=== PATIENT | male | born 1945 | race Caucasian/White ===

== ENCOUNTER → 2017-08-16 07:27 | Outpatient (CLI) | payer OTHER, SELFPAY ==
[2017-08-16 08:25] LABS: INR 2.1 (0.9-1.3); Prothrombin Time 22.5 SECONDS (10.1-12.7)
== END ==
PROVIDERS: PCP Internal Medicine; Visit Provider Internal Medicine
DX: I48.2 Chronic atrial fibrillation (principal); Z79.01 Long term (current) use of anticoagulants
CPT/HCPCS: 36415; 85610

== ENCOUNTER → 2017-09-13 08:06 | Outpatient (CLI) | payer OTHER, SELFPAY ==
[2017-09-13 08:49] LABS: INR 2.5 (0.9-1.3); Prothrombin Time 26.7 SECONDS (10.1-12.7)
== END ==
PROVIDERS: PCP Internal Medicine; Visit Provider Internal Medicine
DX: Z79.01 Long term (current) use of anticoagulants (principal); I48.2 Chronic atrial fibrillation
CPT/HCPCS: 36415; 85610

== ENCOUNTER → 2017-10-09 11:22 | Outpatient (CLI) | payer OTHER, SELFPAY ==
[2017-10-09 13:12] LABS: INR 2.1 (0.9-1.3); Prothrombin Time 22.9 SECONDS (10.1-12.7)
== END ==
PROVIDERS: PCP Internal Medicine; Visit Provider Internal Medicine
DX: Z79.01 Long term (current) use of anticoagulants (principal); I48.2 Chronic atrial fibrillation
CPT/HCPCS: 36415; 85610

== ENCOUNTER → 2017-11-07 08:31 | Outpatient (CLI) | payer OTHER, SELFPAY ==
[2017-11-07 09:08] LABS: INR 2.3 (0.9-1.3)
== END ==
PROVIDERS: PCP Internal Medicine; Visit Provider Internal Medicine
DX: I48.2 Chronic atrial fibrillation (principal); Z79.01 Long term (current) use of anticoagulants
CPT/HCPCS: 36415; 85610

== ENCOUNTER → 2017-12-07 07:06 | Outpatient (CLI) | payer OTHER, SELFPAY ==
[2017-12-07 07:32] LABS: INR 2.5 (0.9-1.3); Prothrombin Time 27.5 SECONDS (10.1-12.7)
== END ==
PROVIDERS: PCP Internal Medicine; Visit Provider Internal Medicine
DX: I48.2 Chronic atrial fibrillation (principal); Z79.01 Long term (current) use of anticoagulants
CPT/HCPCS: 36415; 85610

== ENCOUNTER → 2018-01-04 09:33 | Outpatient (CLI) | payer OTHER, SELFPAY ==
[2018-01-04 10:05] LABS: INR 2.9 (0.9-1.3); Prothrombin Time 32.1 SECONDS (10.1-12.7)
== END ==
PROVIDERS: PCP Internal Medicine; Visit Provider Internal Medicine
DX: I48.2 Chronic atrial fibrillation (principal); Z79.01 Long term (current) use of anticoagulants
CPT/HCPCS: 36415; 85610

== ENCOUNTER → 2018-02-01 08:51 | Outpatient (CLI) | payer OTHER, SELFPAY ==
[2018-02-01 10:28] LABS: INR 2.7 (0.9-1.3); Prothrombin Time 29.2 SECONDS (10.1-12.7)
== END ==
PROVIDERS: PCP Internal Medicine; Visit Provider Internal Medicine
DX: I48.2 Chronic atrial fibrillation (principal); Z79.01 Long term (current) use of anticoagulants
CPT/HCPCS: 36415; 85610

== ENCOUNTER → 2018-03-01 09:13 | Outpatient (CLI) | payer OTHER, SELFPAY ==
[2018-03-01 10:10] LABS: INR 2.8 (0.9-1.3); Prothrombin Time 32.4 SECONDS (10.1-12.7)
== END ==
PROVIDERS: PCP Internal Medicine; Visit Provider Internal Medicine
DX: I48.2 Chronic atrial fibrillation (principal); Z79.01 Long term (current) use of anticoagulants
CPT/HCPCS: 36415; 85610

== ENCOUNTER → 2018-03-08 11:32 | Outpatient (CLI) | payer OTHER, SELFPAY ==
[2018-03-08 12:30] LABS: Add Manual Diff / Slide Review NO; Basophils Percent Auto 0.8 % (0-2); Eosinophils Percent Auto 3.1 % (2-4); Hematocrit 45.2 % (41-53); Hemoglobin 15.5 g/dL (13.5-17.5); Lymphocytes Percent Auto 34.8 % (25-40); Mean Corpuscular HGB Conc 34.2 % (30-36); Mean Corpuscular Hemoglobin 30.7 PG (26-34); Mean Corpuscular Volume 89.5 fL (80-100); Monocytes Percent Auto 11.8 % (3-14); Neutrophils Absolute Auto 1900 /uL (1500-7000); Neutrophils Percent Auto 49.5 % (50-75); Platelet Count 213 X10^3/uL (150-400); Red Blood Cell Count 5.05 X10^6/uL (4.5-5.9); Red Cell Distribution Width 12.8 % (11.6-14.8); White Blood Cell Count 3.7 X10^3/uL (4.5-11.0)
[2018-03-08 12:51] LABS: INR 2.7 (0.9-1.3); Prothrombin Time 31.5 SECONDS (10.1-12.7)
[2018-03-08 13:12] LABS: Alanine Aminotransferase 49 IU/L (21-72); Albumin 4.8 g/dL (3.5-5.0); Albumin Globulin Ratio 1.4 (1.0-2.8); Alkaline Phosphatase 82 U/L (38-126); Aspartate Aminotransferase 44 IU/L (17-59); BUN Creatinine Ratio 25.7 (6-22); Bilirubin Total 0.6 mg/dL (0.2-1.3); Blood Urea Nitrogen 18 mg/dL (9-20); Carbon Dioxide 31 mmol/L (22-32); Chloride 102 mmol/L (98-107); Estimated Glomerular Filt Rate > 60.0 mL/min (>60); Globulin 3.4 g/dL (1.7-4.1); Glucose 95 mg/dL (80-110); HEMOLYSIS < 15 (0-50); Sodium 145 mmol/L (137-145); Total Protein 8.2 g/dL (6.3-8.2)
== END ==
PROVIDERS: PCP Internal Medicine; Visit Provider Internal Medicine
DX: I48.2 Chronic atrial fibrillation (principal); Z79.01 Long term (current) use of anticoagulants; E78.2 Mixed hyperlipidemia; I10 Essential (primary) hypertension; R97.20 Elevated prostate specific antigen [PSA]
CPT/HCPCS: 36415; 80053; 84153; 85025; 85610

== ENCOUNTER 2018-03-26 07:23 | Day surgery (SDC) | payer OTHER, SELFPAY ==
[2018-03-26 07:51] VITALS: BP 160/93; PULSE 90; RESP 16; TEMP 36.4; O2SAT 98; BMI 31.0
[2018-03-26] MEDS: PROPARACAINE 0.5% OPHTH SOL 2 DROPS EYE-OP (08:00)
[2018-03-26] MEDS: CATARACT EYE COMPOUND (10 DROPS/SYRINGE) 3 DROPS EYE-OP ×3 (08:05→08:15)
--- NOTE | 2018-03-26 09:32 | PM.PREOP ---
Pre-operative Note Interval Note History & Physical reviewed/Exam performed by Physician: No Changes to H&P: No
--- NOTE | 2018-03-26 09:33 | P.OP_ITS ---
Operative Date/Time/Diagnoses Pre-op diagnosis: Nuclear cataract right eye Procedure & Clinicians Procedure: Cataract Surgery Same procedure as scheduled: Yes Surgeon: Lenny Brito Anesthesia Type: MAC +/- and Sedation Operative Notes Procedure in detail: Patient brought to the operating suite. Tetracaine drops placed in the right eye. Patient was prepped and draped in sterile manner. Wire lid speculum was placed in the eye. Betadine drops were placed on the eye. This was irrigated. Lidocaine jelly was placed on the eye. A paracentesis port was created with a side-port blade. 0.1 mL 1% preservative free lidocaine was injected into the anterior chamber. The anterior chamber was deepened with viscoelastic. 2.6 mm keratome was used to create a temporal clear corneal incision. Cystotome and Utrata forceps were used to create continuous tear capsulorrhexis. Balanced salt solution was used to hydro dissect the nucleus. The phacoemulsification handpiece was inserted and the nucleus was removed using the stop and chop technique. The irrigation aspiration handpiece was inserted and the remaining cortex was removed. Anterior chamber was deepened with viscoelastic. An Ron ZCB00 intraocular lens with a power of 19.5 was injected into the capsular bag. Irrigation aspiration handpiece was inserted and the remaining viscoelastic was removed. Incision was hydrated with balanced salt solution and found to be leak free with pressure with Weck- Mckenna sponges. 0.1 mL Vigamox injected anterior chamber. 0.3 mL Kenalog 10 mg was injected subconjunctivally. Lid speculum was removed. The patient left the operating room in excellent condition. Complications: none Condition: stable Disposition: same day surgery
[2018-03-26] MEDS: PHENYLEPHRINE/LIDOCAINE VIAL (OR) 0.2 ML EYE-OP (09:40)
[2018-03-26] MEDS: TRIAMCINOLONE 50 MG/5 ML VIAL INJ (09:41)
[2018-03-26] MEDS: MOXIFLOXACIN OPHTH DROPS 3 ML BOTTLE 2 DROPS INJ (09:41)
[2018-03-26] MEDS: CHONDROIDTIN/SOD HYALURONATE 1.05 ML SYRINGE INTRAOCULA (09:41)
[2018-03-26] MEDS: LIDOCAINE JELLY 2% 5 ML 1 APPLIC TOP (09:41)
[2018-03-26] MEDS: BALANCED SALT IRRIG SOLN NO.2 500 ML, EPINEPHrine 1 MG IRR (09:42)
[2018-03-26] MEDS: TETRACAINE 0.5% OPHTH DROPS 15 ML 2 DROPS EYE-RIGHT (09:42)
[2018-03-26 10:10] VITALS: BP 108/70; PULSE 59; RESP 15; TEMP 36.3; O2SAT 95
== END 2018-03-26 10:15 | disposition admitted as inpatient to this hospital (09) ==
PROVIDERS: PCP Internal Medicine; Visit Provider Ophthalmology
DX: H25.11 Age-related nuclear cataract, right eye (principal); I10 Essential (primary) hypertension; I48.91 Unspecified atrial fibrillation; Z79.01 Long term (current) use of anticoagulants
CPT/HCPCS: J0171; J2250; J3010; J3301

== ENCOUNTER 2018-04-02 06:30 | Day surgery (SDC) | payer OTHER, SELFPAY ==
[2018-04-02] MEDS: PROPARACAINE 0.5% OPHTH SOL 2 DROPS EYE-OP (07:03)
[2018-04-02] MEDS: CATARACT EYE COMPOUND (10 DROPS/SYRINGE) 3 DROPS EYE-OP (07:08)
[2018-04-02 07:09] VITALS: BMI 31.0
[2018-04-02 07:23] VITALS: BP 149/91; PULSE 80; RESP 16; TEMP 36.6; O2SAT 97
--- NOTE | 2018-04-02 07:49 | PM.PREOP ---
Pre-operative Note Interval Note History & Physical reviewed/Exam performed by Physician: No Changes to H&P: No
--- NOTE | 2018-04-02 07:50 | P.OP_ITS ---
Operative Date/Time/Diagnoses Pre-op diagnosis: Nuclear Cataract Left eye Post-op diagnosis: same Procedure & Clinicians Surgeon: Lenny Brito Anesthesia Type: MAC +/- and Sedation Operative Notes Procedure in detail: Patient brought to the operating suite. Tetracaine drops placed in the left eye. Patient was prepped and draped in sterile manner. Wire lid speculum was placed in the eye. Betadine drops were placed on the eye. This was irrigated. Lidocaine jelly was placed on the eye. A paracentesis port was created with a side-port blade. 0.1 mL 1% preservative free lidocaine was injected into the anterior chamber. The anterior chamber was deepened with viscoelastic. 2.6 mm keratome was used to create a temporal clear corneal incision. Cystotome and Utrata forceps were used to create continuous tear capsulorrhexis. Balanced salt solution was used to hydro dissect the nucleus. The phacoemulsification handpiece was inserted and the nucleus was removed using the stop and chop technique. The irrigation aspiration handpiece was inserted and the remaining cortex was removed. Anterior chamber was deepened with viscoelastic. An Ron ZCB00 intraocular lens with a power of 20.0 was injected into the capsular bag. Irrigation aspiration handpiece was inserted and the remaining viscoelastic was removed. Incision was hydrated with balanced salt solution and found to be leak free with pressure with Weck- Mceknna sponges. 0.1 mL Vigamox injected anterior chamber. 0.3 mL Kenalog 10 mg was injected subconjunctivally. Lid speculum was removed. The patient left the operating room in excellent condition. Complications: none Condition: stable Disposition: same day surgery
--- NOTE | 2018-04-02 07:50 | SUR.OPER ---
Supine on eye stretcher, head on extension cradle secured with tape. Arms tucked at sides with blanket. Pillow under knees.
[2018-04-02] MEDS: PHENYLEPHRINE/LIDOCAINE VIAL (OR) 0.2 ML EYE-OP (07:54)
[2018-04-02] MEDS: TRIAMCINOLONE 50 MG/5 ML VIAL INJ (07:55)
[2018-04-02] MEDS: MOXIFLOXACIN OPHTH DROPS 3 ML BOTTLE 2 DROPS INJ (07:55)
[2018-04-02] MEDS: CHONDROIDTIN/SOD HYALURONATE 1.05 ML SYRINGE INTRAOCULA (07:55)
[2018-04-02] MEDS: BALANCED SALT IRRIG SOLN NO.2 500 ML, EPINEPHrine 1 MG IRR (07:56)
[2018-04-02] MEDS: TETRACAINE 0.5% OPHTH DROPS 4 ML 2 DROPS EYE-OP (07:56)
[2018-04-02] MEDS: LIDOCAINE JELLY 2% 5 ML 1 APPLIC TOP (07:56)
[2018-04-02 08:12] VITALS: BP 109/72; PULSE 72; RESP 15; TEMP 36.4; O2SAT 96
== END 2018-04-02 08:30 | disposition home or self-care (01) ==
PROVIDERS: PCP Internal Medicine; Visit Provider Ophthalmology
DX: H25.12 Age-related nuclear cataract, left eye (principal); I10 Essential (primary) hypertension; I48.91 Unspecified atrial fibrillation
CPT/HCPCS: J0171; J2250; J3010; J3301

== ENCOUNTER → 2018-04-04 11:27 | Outpatient (CLI) | payer OTHER, SELFPAY ==
[2018-04-04 12:33] LABS: INR 2.5 (0.9-1.3); Prothrombin Time 29.5 SECONDS (10.1-12.7)
[2018-04-04 12:53] LABS: BUN Creatinine Ratio 22.9 (6-22); Blood Urea Nitrogen 16 mg/dL (9-20); Estimated Glomerular Filt Rate > 60.0 mL/min (>60)
== END ==
PROVIDERS: Family Provider Student in an Organized Health Care Education/Training Program; PCP Internal Medicine; Visit Provider Internal Medicine
DX: R31.0 Gross hematuria (principal); I48.2 Chronic atrial fibrillation; Z79.01 Long term (current) use of anticoagulants
CPT/HCPCS: 36415; 82565; 84520; 85610

== ENCOUNTER → 2018-04-05 11:49 | Outpatient (CLI) | payer OTHER, SELFPAY ==
--- NOTE | 2018-04-05 | DI.CT.S_ITS ---
PROCEDURE: CT ABDOMEN PELVIS WO/W CON INDICATIONS: Gross hematuria TECHNIQUE: Optional 5 mm thick noncontrast images acquired from the diaphragm to the symphysis pubis. After the administration of intravenous contrast, 5 mm thick images acquired from the diaphragm to the symphysis pubis after a 10-minute delay. 2 mm thick coronal and sagittal reformats were then performed of the kidneys and ureters. For radiation dose reduction, the following was used: automated exposure control, adjustment of mA and/or kV according to patient size. COMPARISON: None. FINDINGS: Image quality: Excellent. Lung bases: Lung bases are clear. Heart size is at the upper limits of normal. There is a small hilar hernia. Urinary system: Kidneys demonstrate no renal stones, hydronephrosis, or perinephric stranding. There is symmetric bilateral renal enhancement. There is a left renal cortical cyst as wall as a few small hypodense foci in the right kidney which are too small to characterize but likely represent cysts. The Renal calyces appear normal in morphology when filled with contrast. Opacified portions of both ureters demonstrate normal caliber. No obstructing renal stone identified. Bladder wall thickness is normal. No calcified bladder stones. There is marked enlargement of the prostate which demonstrates scattered small foci of internal calcifications. Other solid organs: There is a small hypodensity in the right hepatic lobe measuring up to 4 mm which is too small to characterize but likely represents a cyst. Gallbladder appears within normal limits without calcified gallstones. Biliary system is non dilated. Pancreas enhances normally. Spleen is normal in size and enhancement. There is thickening of the adrenal glands bilaterally. Peritoneum and bowel: Bowel loops demonstrate normal wall thickness and caliber. There is colonic diverticulosis without acute diverticulitis. No free fluid or air. Nodes and vessels: No retroperitoneal or mesenteric adenopathy by size criteria. Aorta and inferior vena cava are normal in size. Abdominal wall: No ventral hernias. Pelvis: No pathologic free pelvic fluid. There is a small fat-containing left inguinal hernia. No inguinal adenopathy. Bones: No suspicious bony lesions. No vertebral body compression fractures. IMPRESSION: 1. No evidence of nephrolithiasis, hydronephrosis, or suspicious filling defects within the renal cortical systems. 2. Marked enlargement of the prostate is nonspecific and likely represents BPH. Dictated by: Everardo Kidd M.D. on 04/05/2018 at 13:25 Approved by: Everardo Kidd M.D. on 04/05/2018 at 13:36
== END ==
PROVIDERS: Family Provider Student in an Organized Health Care Education/Training Program; PCP Internal Medicine; Visit Provider Student in an Organized Health Care Education/Training Program
DX: R31.0 Gross hematuria (principal); N40.0 Benign prostatic hyperplasia without lower urinary tract symptoms; K40.90 Unilateral inguinal hernia, without obstruction or gangrene, not specified as recurrent
CPT/HCPCS: 74178; Q9967

== ENCOUNTER → 2018-04-25 10:14 | Outpatient (CLI) | payer OTHER, SELFPAY ==
[2018-04-25 10:52] LABS: INR 2.1 (0.9-1.3); Prothrombin Time 24.3 SECONDS (10.1-12.7)
== END ==
PROVIDERS: PCP Internal Medicine; Visit Provider Internal Medicine
DX: I48.2 Chronic atrial fibrillation (principal); Z79.01 Long term (current) use of anticoagulants
CPT/HCPCS: 36415; 85610

== ENCOUNTER → 2018-05-23 09:20 | Outpatient (CLI) | payer OTHER, SELFPAY ==
[2018-05-23 10:17] LABS: INR 2.7 (0.9-1.3); Prothrombin Time 31.3 SECONDS (10.1-12.7)
== END ==
PROVIDERS: PCP Internal Medicine; Visit Provider Internal Medicine
DX: I48.2 Chronic atrial fibrillation (principal); Z79.01 Long term (current) use of anticoagulants
CPT/HCPCS: 36415; 85610

== ENCOUNTER → 2018-06-20 09:02 | Outpatient (CLI) | payer OTHER, SELFPAY ==
[2018-06-20 09:58] LABS: INR 3.2 (0.9-1.3); Prothrombin Time 37.5 SECONDS (10.1-12.7)
== END ==
PROVIDERS: PCP Internal Medicine; Visit Provider Internal Medicine
DX: I48.2 Chronic atrial fibrillation (principal); Z79.01 Long term (current) use of anticoagulants
CPT/HCPCS: 36415; 85610

== ENCOUNTER → 2018-07-17 08:02 | Outpatient (CLI) | payer OTHER, SELFPAY ==
[2018-07-17 09:02] LABS: INR 2.2 (0.9-1.3); Prothrombin Time 25.9 SECONDS (10.1-12.7)
== END ==
PROVIDERS: PCP Internal Medicine; Visit Provider Internal Medicine
DX: I48.2 Chronic atrial fibrillation (principal); Z79.01 Long term (current) use of anticoagulants
CPT/HCPCS: 36415; 85610

== ENCOUNTER → 2018-08-20 09:24 | Outpatient (CLI) | payer OTHER, SELFPAY ==
[2018-08-20 10:26] LABS: Prothrombin Time 35.3 SECONDS (10.1-12.7)
== END ==
PROVIDERS: PCP Internal Medicine; Visit Provider Internal Medicine
DX: I48.2 Chronic atrial fibrillation (principal); Z79.01 Long term (current) use of anticoagulants
CPT/HCPCS: 36415; 85610

== ENCOUNTER → 2018-09-18 09:09 | Outpatient (CLI) | payer OTHER, SELFPAY ==
[2018-09-18 10:55] LABS: Prothrombin Time 36.1 SECONDS (10.1-12.7)
== END ==
PROVIDERS: PCP Internal Medicine; Visit Provider Internal Medicine
DX: I48.2 Chronic atrial fibrillation (principal); Z79.01 Long term (current) use of anticoagulants
CPT/HCPCS: 36415; 85610

== ENCOUNTER → 2018-10-17 08:35 | Outpatient (CLI) | payer OTHER, SELFPAY ==
[2018-10-17 09:23] LABS: INR 3.1 (0.9-1.3); Prothrombin Time 37.1 SECONDS (10.1-12.7)
== END ==
PROVIDERS: PCP Internal Medicine; Visit Provider Internal Medicine
DX: I48.2 Chronic atrial fibrillation (principal); Z79.01 Long term (current) use of anticoagulants
CPT/HCPCS: 36415; 85610

== ENCOUNTER → 2018-11-15 09:21 | Outpatient (CLI) | payer OTHER, SELFPAY ==
[2018-11-15 09:51] LABS: INR 3.4 (0.9-1.3); Prothrombin Time 40.4 SECONDS (10.1-12.7)
== END ==
PROVIDERS: PCP Internal Medicine; Visit Provider Internal Medicine
DX: I48.2 Chronic atrial fibrillation (principal); Z79.01 Long term (current) use of anticoagulants
CPT/HCPCS: 36415; 85610

== ENCOUNTER → 2018-11-29 09:33 | Outpatient (CLI) | payer OTHER, SELFPAY | PROVIDERS: PCP Internal Medicine; Visit Provider Internal Medicine | DX: I48.2 Chronic atrial fibrillation (principal); Z79.01 Long term (current) use of anticoagulants | CPT/HCPCS: 36415; 85610 ==

== ENCOUNTER → 2018-12-27 09:14 | Outpatient (CLI) | payer OTHER, SELFPAY ==
[2018-12-27 10:15] LABS: INR 2.8 (0.9-1.3); Prothrombin Time 33.1 SECONDS (10.1-12.7)
== END ==
PROVIDERS: PCP Internal Medicine; Visit Provider Internal Medicine
DX: Z79.01 Long term (current) use of anticoagulants (principal); I48.20 Chronic atrial fibrillation, unspecified
CPT/HCPCS: 36415; 85610

== ENCOUNTER → 2019-01-20 11:34 | Outpatient (CLI) | payer OTHER, SELFPAY ==
--- NOTE | 2019-01-20 11:37 | DI.RAD.S_ITS ---
PROCEDURE: XR KNEE RT 3V INDICATIONS: knee pain TECHNIQUE: 3 views of the knee were acquired. COMPARISON: None. FINDINGS: Bones: No fractures or dislocations. No suspicious bony lesions. The bone mineralization is within normal limits. There are small developing marginal osteophytes within the patellofemoral compartment. Medial joint space narrowing is present. No osseous erosions are identified. Soft tissues: No joint effusion. No suspicious soft tissue calcifications. IMPRESSION: Mild degenerative changes of the right knee. Dictated by: Pito Saldivar M.D. on 01/20/2019 at 14:22 Approved by: Pito Saldivar M.D. on 01/20/2019 at 14:23
== END ==
PROVIDERS: PCP Internal Medicine; Visit Provider Internal Medicine
DX: M25.561 Pain in right knee (principal); M25.761 Osteophyte, right knee
CPT/HCPCS: 73562

== ENCOUNTER → 2019-01-27 09:23 | Outpatient (CLI) | payer OTHER, SELFPAY ==
[2019-01-27 11:57] LABS: INR 3.2 (0.9-1.3); Prothrombin Time 37.5 SECONDS (10.1-12.7)
== END ==
PROVIDERS: PCP Internal Medicine; Visit Provider Internal Medicine
DX: I48.20 Chronic atrial fibrillation, unspecified (principal); Z79.01 Long term (current) use of anticoagulants
CPT/HCPCS: 36415; 85610

== ENCOUNTER → 2019-02-26 09:10 | Outpatient (CLI) | payer OTHER, SELFPAY ==
[2019-02-26 10:44] LABS: INR 2.8 (0.9-1.3); Prothrombin Time 33.3 SECONDS (10.1-12.7)
== END ==
PROVIDERS: PCP Internal Medicine; Visit Provider Internal Medicine
DX: I48.20 Chronic atrial fibrillation, unspecified (principal); Z79.01 Long term (current) use of anticoagulants
CPT/HCPCS: 36415; 85610

== ENCOUNTER → 2019-04-10 09:22 | Outpatient (CLI) | payer OTHER, SELFPAY ==
[2019-04-10 10:09] LABS: INR 2.7 (0.9-1.3); Prothrombin Time 31.4 SECONDS (10.1-12.7)
== END ==
PROVIDERS: PCP Internal Medicine; Visit Provider Internal Medicine
DX: I48.20 Chronic atrial fibrillation, unspecified (principal); Z79.01 Long term (current) use of anticoagulants
CPT/HCPCS: 36415; 85610

== ENCOUNTER → 2019-05-29 07:10 | Outpatient (CLI) | payer OTHER, SELFPAY ==
[2019-05-29 07:50] LABS: INR 3.2 (0.9-1.3); Prothrombin Time 36.6 SECONDS (10.1-12.7)
== END ==
PROVIDERS: PCP Internal Medicine; Referring Provider Internal Medicine; Visit Provider Internal Medicine
DX: Z79.01 Long term (current) use of anticoagulants (principal); I48.20 Chronic atrial fibrillation, unspecified
CPT/HCPCS: 36415; 85610

== ENCOUNTER → 2020-06-16 07:00 | Outpatient (CLI) | payer OTHER, SELFPAY ==
[2020-06-16 08:08] LABS: INR 2.7 (0.9-1.3); Prothrombin Time 30.4 SECONDS (10.1-12.7)
[2020-06-16 08:17] LABS: Add Manual Diff / Slide Review NO; Basophils Absolute Auto 0 /uL (0-100); Basophils Percent Auto 0.5 % (0-2); Eosinophils Absolute Auto 200 /uL (0-450); Eosinophils Percent Auto 3.4 % (2-4); Hemoglobin 15.2 g/dL (13.5-17.5); Lymphocytes Absolute Auto 1100 /uL (1100-4500); Lymphocytes Percent Auto 20.5 % (25-40); Mean Corpuscular HGB Conc 34.5 % (30-36); Mean Corpuscular Hemoglobin 30.6 PG (26-34); Mean Corpuscular Volume 88.7 fL (80-100); Monocytes Absolute Auto 700 /uL (0-900); Monocytes Percent Auto 12.9 % (3-14); Neutrophils Absolute Auto 3200 /uL (1500-7000); Neutrophils Percent Auto 62.7 % (50-75); Platelet Count 216 X10^3/uL (150-400); Red Blood Cell Count 4.96 X10^6/uL (4.5-5.9); Red Cell Distribution Width 12.6 % (11.6-14.8); White Blood Cell Count 5.2 X10^3/uL (4.5-11.0)
[2020-06-16 08:18] LABS: Alanine Aminotransferase 35 IU/L (<50); Albumin 4.5 g/dL (3.5-5.0); Albumin Globulin Ratio 1.3 (1.0-2.8); Alkaline Phosphatase 91 U/L (38-126); Aspartate Aminotransferase 39 IU/L (17-59); BUN Creatinine Ratio 17.1 (6-22); Bilirubin Total 0.9 mg/dL (0.2-1.3); Blood Urea Nitrogen 14 mg/dL (9-20); Calcium 9.5 mg/dL (8.4-10.2); Carbon Dioxide 32 mmol/L (22-32); Chloride 103 mmol/L (98-107); Cholesterol 192 mg/dL (140-199); Estimated Glomerular Filt Rate > 60.0 mL/min (>60); Globulin 3.4 g/dL (1.7-4.1); Glucose 99 mg/dL (80-110); HDL Cholesterol 36 mg/dL (40-60); HEMOLYSIS < 15 (0-50); LDL Cholesterol Calculated 134 mg/dL (<100); Potassium 3.6 mmol/L (3.4-5.1); Sodium 140 mmol/L (137-145); Total Protein 7.9 g/dL (6.3-8.2); Triglycerides 111 mg/dL (35-150)
== END ==
PROVIDERS: PCP Internal Medicine; Referring Provider Internal Medicine; Visit Provider Internal Medicine
DX: E78.2 Mixed hyperlipidemia (principal); Z79.01 Long term (current) use of anticoagulants; I10 Essential (primary) hypertension; R97.20 Elevated prostate specific antigen [PSA]; I48.20 Chronic atrial fibrillation, unspecified
CPT/HCPCS: 36415; 80053; 80061; 84153; 85025; 85610

== ENCOUNTER → 2020-09-22 07:27 | Outpatient (CLI) | payer OTHER, SELFPAY ==
[2020-09-22 09:23] LABS: Prostate Specific Antigen 8.71 ng/mL (0.10-4.00)
== END ==
PROVIDERS: PCP Internal Medicine; Referring Provider Internal Medicine; Visit Provider Internal Medicine
DX: R97.20 Elevated prostate specific antigen [PSA] (principal)
CPT/HCPCS: 36415; 84153

== ENCOUNTER → 2021-05-02 07:13 | Outpatient (CLI) | payer OTHER, SELFPAY ==
[2021-05-02 09:08] LABS: Prostate Specific Antigen 10.4 ng/mL (0.10-4.00)
== END ==
PROVIDERS: PCP Internal Medicine; Referring Provider Internal Medicine; Visit Provider Internal Medicine
DX: R31.9 Hematuria, unspecified (principal); R97.20 Elevated prostate specific antigen [PSA]
CPT/HCPCS: 36415; 84153

== ENCOUNTER → 2021-06-13 07:18 | Outpatient (CLI) | payer OTHER, SELFPAY ==
--- NOTE | 2021-06-13 07:20 | DI.RAD.S_ITS ---
PROCEDURE: XR CHEST 2V INDICATIONS: cough TECHNIQUE: 2 views of the chest were acquired. COMPARISON: None. FINDINGS: Surgical changes and devices: None. Lungs and pleura: Lungs appear clear. No pleural effusions or pneumothorax. Mediastinum: Mediastinal contours are normal. Heart size is normal. Bones and chest wall: No suspicious bony abnormalities. Soft tissues appear unremarkable. IMPRESSION: No acute cardiopulmonary abnormality. Dictated by: Duglas Draper M.D. on 06/13/2021 at 8:16 Approved by: Duglas Draper M.D. on 06/13/2021 at 8:41
[2021-06-13 08:58] LABS: Add Manual Diff / Slide Review NO; Basophils Absolute Auto 0 /uL (0-100); Basophils Percent Auto 0.8 % (0-2); Eosinophils Absolute Auto 200 /uL (0-450); Eosinophils Percent Auto 4.3 % (2-4); Hematocrit 42.7 % (41-53); Hemoglobin 14.5 g/dL (13.5-17.5); Lymphocytes Absolute Auto 1700 /uL (1100-4500); Lymphocytes Percent Auto 35.9 % (25-40); Mean Corpuscular HGB Conc 33.9 % (30-36); Mean Corpuscular Hemoglobin 29.9 PG (26-34); Monocytes Absolute Auto 600 /uL (0-900); Monocytes Percent Auto 12.1 % (3-14); Neutrophils Absolute Auto 2300 /uL (1500-7000); Neutrophils Percent Auto 46.9 % (50-75); Platelet Count 203 X10^3/uL (150-400); Red Blood Cell Count 4.86 X10^6/uL (4.5-5.9); Red Cell Distribution Width 13.2 % (11.6-14.8); White Blood Cell Count 4.8 X10^3/uL (4.5-11.0)
[2021-06-13 09:46] LABS: Alanine Aminotransferase 30 IU/L (<50); Albumin 4.4 g/dL (3.5-5.0); Albumin Globulin Ratio 1.4 (1.0-2.8); Alkaline Phosphatase 87 U/L (38-126); Aspartate Aminotransferase 36 IU/L (17-59); BUN Creatinine Ratio 13.3 (6-22); Bilirubin Total 0.7 mg/dL (0.2-1.3); Blood Urea Nitrogen 12 mg/dL (9-20); Calcium 9.4 mg/dL (8.4-10.2); Carbon Dioxide 29 mmol/L (22-32); Chloride 105 mmol/L (98-107); Cholesterol 172 mg/dL (140-199); Estimated Glomerular Filt Rate > 60.0 mL/min (>60); Globulin 3.2 g/dL (1.7-4.1); Glucose 90 mg/dL (80-110); HDL Cholesterol 33 mg/dL (40-60); HEMOLYSIS < 15 (0-50); LDL Cholesterol Calculated 116 mg/dL (<100); Potassium 3.8 mmol/L (3.4-5.1); Sodium 141 mmol/L (137-145); Total Protein 7.6 g/dL (6.3-8.2); Triglycerides 113 mg/dL (35-150)
== END ==
PROVIDERS: PCP Internal Medicine; Referring Provider Internal Medicine; Visit Provider Internal Medicine
DX: I48.20 Chronic atrial fibrillation, unspecified (principal); I10 Essential (primary) hypertension; R05.9 Cough, unspecified; E78.2 Mixed hyperlipidemia
CPT/HCPCS: 36415; 71046; 80053; 80061; 85025

== ENCOUNTER → 2021-09-03 17:13 | Outpatient (CLI) | payer OTHER, SELFPAY | PROVIDERS: PCP Internal Medicine; Visit Provider Nurse Practitioner Family | DX: R30.0 Dysuria (principal) | CPT/HCPCS: 87086 ==

== ENCOUNTER 2021-09-03 17:25 | Emergency (ER) | payer OTHER, SELFPAY ==
[2021-09-03 17:59] VITALS: BP 133/83; PULSE 110; RESP 18; TEMP 37.5; O2SAT 97; BMI 28.5
--- NOTE | 2021-09-03 18:09 | ED_ITS ---
HPI - Male Genitourinary General Chief complaint: Urogenital-Male Stated complaint: UTI Temp 102F Time Seen by Provider: 09/03/21 17:51 Source: patient Mode of arrival: Ambulatory History of Present Illness HPI Narrative: Patient is a 76-year-old male history of atrial fibrillation on warfarin presenting today from walk-in clinic with UTI. He says that he has previously had UTIs in the past. He says over the last couple days he has had painful urination. He always has frequent urination due to his BPH. He denies any abdominal pain nausea vomiting. He was noted to have fever 102.4 walk-in clinic. He has not had any confusion. He denies any chest pain or palpitations. No shortness of breath. POC from walk-in clinic does show positive blood, cloudy, positive nitrate leukocytes +500, culture is pending. Related Data Home Medications Medication Instructions Recorded Confirmed ascorbic acid (vitamin C) 500 mg 1,000 mg PO DAILY ##0 10/11/12 09/03/21 tablet multivitamin 1 tab PO DAILY 02/22/18 09/03/21 potassium 99 mg tablet 99 mg PO DAILY 02/22/18 09/03/21 Ocusight 2 ea PO DAILY 06/10/21 09/03/21 Respironics Dreamstation-2 CPAP #1 ea 06/10/21 09/03/21 cholecalciferol (vitamin D3) 50 50 mcg PO DAILY 06/10/21 09/03/21 mcg (2,000 unit) capsule fluticasone propionate 50 1 spray intranasal DAILY 06/10/21 09/03/21 mcg/actuation nasal spray,suspension (Flonase Allergy Relief) magnesium 250 mg tablet 250 mg PO DAILY 06/10/21 09/03/21 Previous Rx's Medication Instructions Recorded diltiazem HCl 120 mg 120 mg PO DAILY #90 caps 01/20/21 capsule,extended release 24 hr (Cardizem CD) tamsulosin 0.4 mg capsule 0.4 mg PO BEDTIME #90 caps 04/26/21 hydrochlorothiazide 25 mg tablet 25 mg PO QDAY #90 tabs 08/30/21 warfarin 5 mg tablet 10 mg PO SEE INSTRUCTIONS #180 tabs 08/30/21 cephalexin 500 mg capsule 500 mg PO BID 7 days #14 caps 09/03/21 Allergies Allergy/AdvReac Type Severity Reaction Status Date / Time tetracycline [TETRACYCLINE] Allergy Mild RASH Verified 09/03/21 17:05 Ahfrpjt-DLU-DjB Reductase AdvReac Intermediate MYALGIAS Verified 09/03/21 17:05 Inhibitor [[id number] REDUCTASE INHIBITOR] Review of Systems Review of Systems Narrative: GENERAL: Denies chills, fatigue, malaise, fever, sweats, travel HEENT: Denies sinus pain, ear pain, sore throat, difficulty swallowing, neck pain RESPIRATORY: Denies dyspnea, cough, wheezing, hemoptysis, sputum. CARDIOVASCULAR: Denies chest pain, palpitations, orthopnea, edema GASTROINTESTINAL: Denies nausea, vomiting, abdominal pain, diarrhea, constipation, melena. : See HPI MUSCULOSKELETAL: Denies weakness, joint pain, or bony pain SKIN: No rash, no erythema, no pruritus NEUROLOGIC: Denies weakness, dizziness, headache, numbness, change in speech, confusion PSYCHIATRIC: No concerning psychosocial issues. 12 point review of systems is negative except for those stated above and HPI Patient History Medical History (Updated 09/03/21 @ 19:38 by Noy Gibbs DO) Anticoagulated on warfarin (08/28/12) Basal cell carcinoma (BCC) of left shoulder (10/12/09) BCC (basal cell carcinoma), scalp/neck (01/01/14) Chronic atrial fibrillation (03/28/13) Elevated prostate specific antigen (PSA) (02/02/15) Essential hypertension Mixed hyperlipidemia Obstructive sleep apnea syndrome Osteoarthritis of right knee Surgical History History of basal cell carcinoma (BCC) excision (10/12/09) History of colonoscopy (05/19/16) History of inguinal hernia repair (1967) S/P UPPP (uvulopalatopharyngoplasty) (1995) Status post appendectomy (1958) Status post Mohs micrographic surgery for basal cell carcinoma (BCC) (01/01/14) Social History household members: spouse Smoking Status: Never smoker Smoking Status: Never smoker alcohol intake frequency: 0-2 drinks per day Substance Use Type: does not use Exam Initial Vital Signs Initial Vital Signs: Vital Signs Temperature 99.5 F 09/03/21 17:59 Pulse Rate 110 H 09/03/21 17:59 Respiratory Rate 18 09/03/21 17:59 Blood Pressure 133/83 09/03/21 17:59 Pulse Oximetry 97 09/03/21 17:59 Oxygen Delivery Method 09/03/21 17:59 GENERAL: Alert awake well-appearing 76-year-old male in no acute distress HEENT: Head atraumatic,EOMI, pupils reactive, face symmetric, moist mucous membranes CARDIOVASCULAR: Irregularly irregular RESPIRATORY: Breath sounds equal bilaterally, no wheezes rales or rhonchi. ABDOMEN: Soft, nontender. Normoactive bowel sounds all 4 quadrants. No guarding or rebound. EXTREMITIES: Normal range of motion, no clubbing or edema. Neurovascularly intact NEUROLOGICAL: Alert and oriented x4.Normal gait and speech. SKIN: Warm, dry, no laceration, no petechiae, no rashes or lesions. Course Orders Ordered: Discontinued Medications Ceftriaxone Sodium 2,000 mg/ (Sodium Chloride) 100 mls @ 200 mls/hr IV NOW ONE Stop: 09/03/21 18:12 Last Infusion: 09/03/21 19:48 Dose: 0 mls/hr Documented By: Admin: 09/03/21 18:42 Dose: 200 mls/hr Documented By: RENÉ Sodium Chloride (Normal Saline 0.9%) 1,000 mls @ 1,000 mls/hr IV BOLUS ONE Stop: 09/03/21 19:10 Last Infusion: 09/03/21 19:48 Dose: 0 mls/hr Documented By: Admin: 09/03/21 18:45 Dose: 1,000 mls/hr Documented By: RENÉ Vital Signs Vital signs: Vital Signs - 8 hr 09/03/21 17:59 Temperature 99.5 F Pulse Rate 110 H Respiratory Rate 18 Blood Pressure 133/83 Pulse Oximetry 97 Oxygen Delivery Method Room Air MDM - Male Genitourinary Lab Data Result diagrams: 09/03/21 17:57 09/03/21 17:57 Labs: Lab Results 09/03/21 09/03/2118 Range/Units 17:57 17:57 17:57 WBC 6.5 (4.5-11.0) X10^3/uL RBC 4.65 (4.5-5.9) X10^6/uL Hgb 14.3 (13.5-17.5) g/dL Hct 41.2 (41-53) % MCV 88.7 (80-100) fL MCH 30.7 (26-34) PG MCHC 34.7 (30-36) % RDW 13.1 (11.6-14.8) % Plt Count 198 (150-400) X10^3/uL Neut % (Auto) 81.1 H (50-75) % Lymph % (Auto) 7.6 L (25-40) % Greenlee % (Auto) 9.8 (3-14) % Eos % (Auto) 0.8 L (2-4) % Baso % (Auto) 0.7 (0-2) % Neut # (Auto) 5300 (4605-3810) /uL Lymph # (Auto) 500 L (2659-1840) /uL Greenlee # (Auto) 600 (0-900) /uL Eos # (Auto) 100 (0-450) /uL Baso # (Auto) 0 (0-100) /uL PT 26.8 H (10.1-12.7) SECONDS INR 2.4 H (0.9-1.3) APTT 42 H (26.4-36.2) SECONDS Sodium 137 (137-145) mmol/L Potassium 3.4 (3.4-5.1) mmol/L Chloride 103 (98-107) mmol/L Carbon Dioxide 25 (22-32) mmol/L BUN 15 (9-20) mg/dL Creatinine 0.67 (0.66-1.25) mg/dL Estimated GFR > 60 (>60) mL/min BUN/Creatinine Ratio 22.4 H (6-22) Glucose 103 (80-110) mg/dL Lactate (0.7-2.1) mmol/L Calcium 9.0 (8.4-10.2) mg/dL Total Bilirubin 0.7 (0.2-1.3) mg/dL AST 47 (17-59) IU/L ALT 33 (<50) IU/L Alkaline Phosphatase 112 (38-126) U/L Total Creatine Kinase 208 H (55-170) U/L CK-MB (CK-2) 2.55 H (<2.37) ng/mL CK-MB (CK-2) Rel Index 1.2 L (1.5-5.0) % Troponin I < 0.012 (0.01-0.034) ng/mL Total Protein 7.9 (6.3-8.2) g/dL Albumin 4.5 (3.5-5.0) g/dL Globulin 3.4 (1.7-4.1) g/dL Albumin/Globulin Ratio 1.3 (1.0-2.8) Procalcitonin 0.12 (<0.5) ng/mL 09/03/21 Range/Units 17:57 WBC (4.5-11.0) X10^3/uL RBC (4.5-5.9) X10^6/uL Hgb (13.5-17.5) g/dL Hct (41-53) % MCV (80-100) fL MCH (26-34) PG MCHC (30-36) % RDW (11.6-14.8) % Plt Count (150-400) X10^3/uL Neut % (Auto) (50-75) % Lymph % (Auto) (25-40) % Greenlee % (Auto) (3-14) % Eos % (Auto) (2-4) % Baso % (Auto) (0-2) % Neut # (Auto) (5927-8980) /uL Lymph # (Auto) (3325-1999) /uL Greenlee # (Auto) (0-900) /uL Eos # (Auto) (0-450) /uL Baso # (Auto) (0-100) /uL PT (10.1-12.7) SECONDS INR (0.9-1.3) APTT (26.4-36.2) SECONDS Sodium (137-145) mmol/L Potassium (3.4-5.1) mmol/L Chloride (98-107) mmol/L Carbon Dioxide (22-32) mmol/L BUN (9-20) mg/dL Creatinine (0.66-1.25) mg/dL Estimated GFR (>60) mL/min BUN/Creatinine Ratio (6-22) Glucose (80-110) mg/dL Lactate 1.0 (0.7-2.1) mmol/L Calcium (8.4-10.2) mg/dL Total Bilirubin (0.2-1.3) mg/dL AST (17-59) IU/L ALT (<50) IU/L Alkaline Phosphatase (38-126) U/L Total Creatine Kinase (55-170) U/L CK-MB (CK-2) (<2.37) ng/mL CK-MB (CK-2) Rel Index (1.5-5.0) % Troponin I (0.01-0.034) ng/mL Total Protein (6.3-8.2) g/dL Albumin (3.5-5.0) g/dL Globulin (1.7-4.1) g/dL Albumin/Globulin Ratio (1.0-2.8) Procalcitonin (<0.5) ng/mL Imaging Data Chest x-ray: Radiologist's Impression: Signed Patient: Jhonatan Pendleton MR#: [id number] : 1945 Acct:[id number] Age/Sex: 76 / M Date of Service: 09/03/21 Loc: ED Accession Number: [id number] ?? Procedure: XR chest 1V Ordering Provider: Noy Gibbs D.O. PROCEDURE:? XR CHEST 1V ? INDICATIONS:? fever ? TECHNIQUE:? One view of the chest was acquired.? ? COMPARISON:? [facility], , XR CHEST 2V, 06/13/2021, 7:19.? [facility], , CHEST 2 VIEW, 07/03/2017, 15:55. ? FINDINGS:? ? Surgical changes and devices:? None.? ? Lungs and pleura:? Lungs are clear.? No pleural effusions or pneumothorax.? ? Mediastinum:? Mediastinal contours appear normal.? Heart size is normal.? ? Bones and chest wall:? No suspicious bony lesions.? Overlying soft tissues appear unremarkable.? ? IMPRESSION:? No acute cardiopulmonary abnormality. ? ? ? Dictated by: Duglas Draper M.D. on 09/03/2021 at 19:43 ? ? ECG Data Interpretation: Atrial fibrillation rate [address] changes no priors to compare MDM Narrative Medical decision making narrative: Patient clinically appears well however he does have a UTI. She has no leukocytosis or lactic acid. He is given a dose of Rocephin here in the ED and prescription for Keflex. At this time there is no indication or need to admit h im to the hospital. Discussed warning signs with the patient is he agrees to return if needed. Discharge Plan Departure Patient Disposition: Home Clinical Impression: Acute UTI Instructions: DI for Urinary Tract Infection (UTI) Activity Restrictions/Additional Instructions: *You have been diagnosed with UTI *What to do: At this time blood work is overall reassuring. You do have a bladder infection. You should start feeling better over the next couple of days *Continue to take medications as directed Keflex 500 mg twice a day for 7 days--> SENT TO [facility] IN [facility] *Follow up with your primary care provider in 2-3 days or call [phone] *Return to ER if you should have increased confusion, persistent fever, painful urination, or any new, worsening or concerning symptoms Prescriptions: New cephalexin 500 mg capsule 500 mg PO BID 7 Days Qty: 14 0RF No Action ascorbic acid (vitamin C) 500 MG tablet 1,000 mg PO DAILY Qty: 0 diltiazem HCl [Cardizem CD] 120 mg capsule,extended release 24hr 120 mg PO DAILY Qty: 90 3RF tamsulosin 0.4 mg capsule 0.4 mg PO BEDTIME Qty: 90 3RF hydrochlorothiazide 25 mg tablet 25 mg PO QDAY Qty: 90 3RF warfarin 5 mg tablet 10 mg PO SEE INSTRUCTIONS Qty: 180 5RF Rx Instructions: 10mg Sunday, Sunday and 7.5mg all other days, or as directed. potassium 99 mg tablet 99 mg PO DAILY multivitamin tablet 1 tab PO DAILY cholecalciferol (vitamin D3) 50 mcg (2,000 unit) capsule 50 mcg PO DAILY magnesium 250 mg tablet 250 mg PO DAILY Ocusight 2 ea PO DAILY fluticasone propionate [Flonase Allergy Relief] 50 mcg/actuation spray,suspension 1 spray intranasal DAILY Rx Instructions: administer into each nostril (DME) Respironics Dreamstation-2 CPAP Qty: 1 Dose Instruction: As directed Label Comments: Pressure: 4-6 cmH2O DME: [facility] Rx Instructions: As directed Referrals: Miguel Liao MD [Primary Care Provider] - Visit Report Forms: Patient Portal/API
--- NOTE | 2021-09-03 18:11 | DI.RAD.S_ITS ---
PROCEDURE: XR CHEST 1V INDICATIONS: fever TECHNIQUE: One view of the chest was acquired. COMPARISON: [facility], , XR CHEST 2V, 06/13/2021, 7:19. [facility], , CHEST 2 VIEW, 07/03/2017, 15:55. FINDINGS: Surgical changes and devices: None. Lungs and pleura: Lungs are clear. No pleural effusions or pneumothorax. Mediastinum: Mediastinal contours appear normal. Heart size is normal. Bones and chest wall: No suspicious bony lesions. Overlying soft tissues appear unremarkable. IMPRESSION: No acute cardiopulmonary abnormality. Dictated by: Duglas Draper M.D. on 09/03/2021 at 19:43 Approved by: Duglas Draper M.D. on 09/03/2021 at 19:43
[2021-09-03 18:27] LABS: Add Manual Diff / Slide Review NO; Basophils Absolute Auto 0 /uL (0-100); Basophils Percent Auto 0.7 % (0-2); Eosinophils Absolute Auto 100 /uL (0-450); Eosinophils Percent Auto 0.8 % (2-4); Hematocrit 41.2 % (41-53); Hemoglobin 14.3 g/dL (13.5-17.5); Lymphocytes Absolute Auto 500 /uL (1100-4500); Lymphocytes Percent Auto 7.6 % (25-40); Mean Corpuscular HGB Conc 34.7 % (30-36); Mean Corpuscular Hemoglobin 30.7 PG (26-34); Mean Corpuscular Volume 88.7 fL (80-100); Monocytes Absolute Auto 600 /uL (0-900); Monocytes Percent Auto 9.8 % (3-14); Neutrophils Absolute Auto 5300 /uL (1500-7000); Neutrophils Percent Auto 81.1 % (50-75); Platelet Count 198 X10^3/uL (150-400); Red Blood Cell Count 4.65 X10^6/uL (4.5-5.9); Red Cell Distribution Width 13.1 % (11.6-14.8); White Blood Cell Count 6.5 X10^3/uL (4.5-11.0)
[2021-09-03 18:30] LABS: INR 2.4 (0.9-1.3); Prothrombin Time 26.8 SECONDS (10.1-12.7)
[2021-09-03 18:32] LABS: PTT Partial Thromboplastin Tim 42 SECONDS (26.4-36.2)
[2021-09-03 18:35] LABS: Alanine Aminotransferase 33 IU/L (<50); Albumin 4.5 g/dL (3.5-5.0); Albumin Globulin Ratio 1.3 (1.0-2.8); Alkaline Phosphatase 112 U/L (38-126); Aspartate Aminotransferase 47 IU/L (17-59); BUN Creatinine Ratio 22.4 (6-22); Bilirubin Total 0.7 mg/dL (0.2-1.3); Blood Urea Nitrogen 15 mg/dL (9-20); Carbon Dioxide 25 mmol/L (22-32); Chloride 103 mmol/L (98-107); Creatine Kinase 208 U/L (55-170); Estimated Glomerular Filt Rate > 60 mL/min (>60); Globulin 3.4 g/dL (1.7-4.1); Glucose 103 mg/dL (80-110); HEMOLYSIS 24 (0-50); Potassium 3.4 mmol/L (3.4-5.1); Sodium 137 mmol/L (137-145); Total Protein 7.9 g/dL (6.3-8.2)
[2021-09-03] MEDS: cefTRIAXone 2,000 MG in SODIUM CHLORIDE 0.9% 100 ML 200 MG IV (18:42)
[2021-09-03] MEDS: SODIUM CHLORIDE 0.9% 1,000 ML 1000 ML IV (18:45)
[2021-09-03 18:47] LABS: Troponin I < 0.012 ng/mL (0.01-0.034)
[2021-09-03 18:50] LABS: CKMB % Relative Index 1.2 % (1.5-5.0); Creatine Kinase MB 2.55 ng/mL (<2.37)
[2021-09-03 18:51] VITALS: BP 149/93; PULSE 102; RESP 29; O2SAT 97
[2021-09-03 18:52] LABS: Procalcitonin 0.12 ng/mL (<0.5)
[2021-09-03 19:00] VITALS: BP 148/79; PULSE 100; RESP 24; O2SAT 98
[2021-09-03 19:30] VITALS: BP 140/70; PULSE 105; RESP 30; O2SAT 97
== END 2021-09-03 19:52 | disposition home or self-care (01) ==
PROVIDERS: Emergency Provider Emergency Medicine; PCP Internal Medicine
DX: N39.0 Urinary tract infection, site not specified (principal); R50.9 Fever, unspecified; R07.9 Chest pain, unspecified; Z79.01 Long term (current) use of anticoagulants; R30.0 Dysuria
CPT/HCPCS: 71045; 80053; 82550; 82553; 83605; 84145; 84484; 85025; 85610; 85730; 87040; 87086; 93005; 93010; 96365; 99284; J0696

== ENCOUNTER → 2021-11-07 07:26 | Outpatient (CLI) | payer OTHER, SELFPAY ==
[2021-11-07 08:36] LABS: Hematocrit 39.6 % (41-53); Hemoglobin 13.8 g/dL (13.5-17.5); Mean Corpuscular HGB Conc 34.9 % (30-36); Mean Corpuscular Hemoglobin 31.4 PG (26-34); Platelet Count 202 X10^3/uL (150-400); Red Cell Distribution Width 13.1 % (11.6-14.8); White Blood Cell Count 4.3 X10^3/uL (4.5-11.0)
[2021-11-07 08:58] LABS: INR 2.7 (0.9-1.3); Prothrombin Time 31.7 SECONDS (10.1-12.7)
[2021-11-07 10:31] LABS: BUN Creatinine Ratio 19.2 (6-22); Blood Urea Nitrogen 14 mg/dL (9-20); Calcium 9.2 mg/dL (8.4-10.2); Carbon Dioxide 31 mmol/L (22-32); Chloride 105 mmol/L (98-107); Estimated Glomerular Filt Rate > 60 mL/min (>60); Glucose 79 mg/dL (80-110); HEMOLYSIS < 15 (0-50); Potassium 3.9 mmol/L (3.4-5.1); Sodium 141 mmol/L (137-145)
== END ==
PROVIDERS: PCP Internal Medicine; Referring Provider Internal Medicine; Visit Provider Internal Medicine
DX: I10 Essential (primary) hypertension (principal); Z79.01 Long term (current) use of anticoagulants; E78.2 Mixed hyperlipidemia; I48.20 Chronic atrial fibrillation, unspecified
CPT/HCPCS: 36415; 80048; 85027; 85610

== ENCOUNTER → 2021-11-10 15:07 | Outpatient (CLI) | payer OTHER, SELFPAY ==
[2021-11-10 16:02] LABS: Appearance Urine UA CLEAR; Bilirubin Urine UA NEGATIVE (NEGATIVE); Color Urine UA YELLOW; Glucose Urine UA NEGATIVE (Negative); Ketones Urine UA NEGATIVE (NEGATIVE); Leukocyte Esterase Urine UA 1+ (NEGATIVE); Nitrite Urine UA NEGATIVE (Negative); Occult Blood Urine UA TRACE-INTACT (Negative); Protein Urine UA NEGATIVE (Negative); Urobilinogen Urine UA 0.2 E.U./dL (0.2); pH Urine UA 7.5 (4.5-8.0)
[2021-11-10 16:22] LABS: RBC Urine 0-1/HPF (0-5/HPF); WBC Urine 0-1/HPF (0-5/HPF)
[2021-11-10 16:23] LABS: Bacteria Urine Occasional (0-1); Culture Indicated Urine Cult Not Indicated; Squamous Epithelial Cell Urine None Seen (0-5/HPF)
== END ==
PROVIDERS: PCP Internal Medicine; Referring Provider Internal Medicine; Visit Provider Internal Medicine
DX: R30.0 Dysuria (principal)
CPT/HCPCS: 81001

== ENCOUNTER → 2022-05-14 11:13 | Outpatient (CLI) | payer OTHER, SELFPAY | PROVIDERS: PCP Internal Medicine; Visit Provider Student in an Organized Health Care Education/Training Program | DX: R30.0 Dysuria (principal) | CPT/HCPCS: 87077; 87086; 87186 ==

== ENCOUNTER → 2022-07-07 11:38 | Outpatient (CLI) | payer OTHER, SELFPAY ==
[2022-07-07 13:27] LABS: Alanine Aminotransferase 53 IU/L (<50); Albumin 4.7 g/dL (3.5-5.0); Albumin Globulin Ratio 1.2 (1.0-2.8); Alkaline Phosphatase 109 U/L (38-126); Aspartate Aminotransferase 47 IU/L (17-59); BUN Creatinine Ratio 28.4 (6-22); Bilirubin Total 0.6 mg/dL (0.2-1.3); Blood Urea Nitrogen 23 mg/dL (9-20); Calcium 9.6 mg/dL (8.4-10.2); Carbon Dioxide 33 mmol/L (22-32); Chloride 104 mmol/L (98-107); Estimated Glomerular Filt Rate > 60 mL/min (>60); Globulin 3.9 g/dL (1.7-4.1); Glucose 98 mg/dL (80-110); HEMOLYSIS < 15 (0-50); Potassium 3.8 mmol/L (3.4-5.1); Sodium 144 mmol/L (137-145); Total Protein 8.6 g/dL (6.3-8.2)
[2022-07-07 14:18] LABS: TSH w/ Reflex to FT4 2.37 uIU/mL (0.47-4.68)
== END ==
PROVIDERS: PCP Internal Medicine; Referring Provider Internal Medicine; Visit Provider Internal Medicine
DX: I49.9 Cardiac arrhythmia, unspecified (principal); I48.20 Chronic atrial fibrillation, unspecified
CPT/HCPCS: 36415; 80053; 84443

== ENCOUNTER → 2022-07-24 09:35 | Outpatient (CLI) | payer OTHER, SELFPAY | PROVIDERS: PCP Internal Medicine; Visit Provider Nurse Practitioner Family | DX: R30.0 Dysuria (principal) | CPT/HCPCS: 87077; 87086; 87186 ==

== ENCOUNTER → 2022-11-11 12:39 | Outpatient (CLI) | payer OTHER, SELFPAY | PROVIDERS: PCP Internal Medicine; Visit Provider Nurse Practitioner Family | DX: R30.0 Dysuria (principal) | CPT/HCPCS: 87077; 87086; 87185; 87186 ==

== ENCOUNTER → 2022-12-19 09:06 | Outpatient (CLI) | payer OTHER, SELFPAY | PROVIDERS: PCP Internal Medicine; Visit Provider Physician Assistant | DX: R30.0 Dysuria (principal) | CPT/HCPCS: 87086 ==

== ENCOUNTER → 2023-01-26 07:25 | Outpatient (CLI) | payer OTHER, SELFPAY ==
[2023-01-26 09:26] LABS: BUN Creatinine Ratio 25.3 (6-22); Blood Urea Nitrogen 22 mg/dL (9-20); Calcium 9.5 mg/dL (8.4-10.2); Carbon Dioxide 29 mmol/L (22-32); Chloride 103 mmol/L (98-107); Estimated Glomerular Filt Rate > 60 mL/min (>60); Glucose 103 mg/dL (80-110); HEMOLYSIS < 15 (0-50); Potassium 4.2 mmol/L (3.4-5.1); Sodium 138 mmol/L (137-145)
== END ==
PROVIDERS: PCP Internal Medicine; Referring Provider Urology; Visit Provider Urology
DX: R31.0 Gross hematuria (principal)
CPT/HCPCS: 36415; 80048

== ENCOUNTER → 2023-02-01 14:45 | Outpatient (CLI) | payer OTHER, SELFPAY ==
--- NOTE | 2023-02-01 14:48 | DI.CT.S_ITS ---
PROCEDURE: CT IVP A/P W/WO INDICATIONS: Elevated PSA;gross hematuria TECHNIQUE: Optional 5 mm thick noncontrast images acquired from the diaphragm to the symphysis pubis. After the administration of intravenous contrast, 5 mm thick images acquired from the diaphragm to the symphysis pubis after a 10-minute delay. 2 mm thick coronal and sagittal reformats were then performed of the kidneys and ureters. For radiation dose reduction, the following was used: automated exposure control, adjustment of mA and/or kV according to patient size. COMPARISON: [facility], CT, CT ABDOMEN PELVIS WO/W CON, 04/05/2018, 11:53. FINDINGS: Image quality: Excellent. Lung bases: Lung bases are clear. Heart size is normal. Urinary system: Both kidneys are normal in size, without hydronephrosis or nephrolithiasis on pre-contrast images. There is likely excreted gadolinium contrast within the renal collecting systems on the noncontrast study. No perinephric fat stranding. There is normal bilateral renal enhancement. Bilateral cortical cystic lesions are present. A rim calcification is present within a left upper pole renal cystic lesion. Renal calyces appear normal in morphology when filled with contrast. Opacified portions of both ureters demonstrate normal caliber. There is bladder wall thickening at the dome and posterior aspect of the bladder with trabeculations suggesting a neurogenic bladder. No calcified bladder stones. The prostate is enlarged and has an irregular appearance. Other solid organs: Liver is normal in size and enhancement. Gallbladder is unremarkable . Biliary system is non dilated. Pancreas enhances normally. Spleen is normal in size and enhancement. No adrenal nodules. Peritoneum and bowel: Bowel loops demonstrate normal wall thickness and caliber. No free fluid or air. Nodes and vessels: No retroperitoneal or mesenteric adenopathy by size criteria. Aorta and inferior vena cava are normal in size. There are scattered atheromatous calcifications throughout the aorta and iliac arteries bilaterally. Abdominal wall: No ventral hernias. Pelvis: No pathologic free pelvic fluid. No inguinal adenopathy. There is a large left fat containing inguinal hernia. Bones: No suspicious bony lesions. Small bone island is redemonstrated within the right iliac bone unchanged from 2019. No vertebral body compression fractures. IMPRESSION: 1. No hydronephrosis, nephrolithiasis, hydroureter, or ureterolithiasis. No suspicious renal lesions. 2. Trabeculated appearing bladder suggesting neurogenic bladder. No bladder stones or discrete bladder mass lesions. 3. Markedly enlarged prostate. Dictated by: Radha Powell M.D. on 02/01/2023 at 17:41 Approved by: Radha Powell M.D. on 02/01/2023 at 17:49
--- NOTE | 2023-02-01 14:48 | DI.MRI.S_ITS ---
PROCEDURE: MR PELVIC PROSTATE PROTOCOL INDICATIONS: Elevated PSA TECHNIQUE: Coronal HASTE, axial T1 FSE with fat saturation, 3-plane nonbreath-hold T2 FSE. After the administration of contrast, dynamic axial, delayed axial and coronal VIBE or 2-D FLASH with fat saturation through the pelvis. Diffusion weighted imaging and ADC was performed. COMPARISON: [facility], CT, CT IVP A/P W/WO, 02/01/2023, 15:54. FINDINGS: Image quality: Diffusion weighted and dynamic contrast enhanced images are diagnostic. Prostate: Enlarged prostate measuring 6.9 x 6.9 x 7.6 cm. Estimated volume is 188 cc. Transitional zone heterogenous nodules are present, either well encapsulated or mostly encapsulated, compatible with PI-RADS 1 or 2 likely BPH nodules. PI-RADS 2. This could obscure small cancers. There is compression of the peripheral zone by the BPH nodules. Exophytic nodule projects at the apex of the bladder. No PI-RADS 4 or 5 lesion identified Genitourinary system: The bladder is distended and trabeculated. Bowel and peritoneum: No distended bowel or ascites. Nodes and vessels: There are prominent lymph nodes, for example left signal operator node measures 7 mm in short axis. Soft tissues: Unremarkable Bones: No acute or suspicious osseous finding. IMPRESSION: The predominant abnormality is BPH. Marked prostatomegaly. PI-RADS 2. The likelihood of clinically significant cancer is low. However, consider future reimaging depending on PSA trends and density. Indeterminate prominent left obturator node measuring 7 mm in short axis, possibly reactive. Trabeculated bladder, probably related to chronic obstruction. Consider urologic follow-up. Dictated by: Bayron Chandler M.D. on 02/02/2023 at 9:56 Approved by: Bayron Chandler M.D. on 02/02/2023 at 10:03
== END ==
PROVIDERS: PCP Internal Medicine; Referring Provider Urology; Visit Provider Urology
DX: N40.0 Benign prostatic hyperplasia without lower urinary tract symptoms (principal); N32.89 Other specified disorders of bladder; R97.20 Elevated prostate specific antigen [PSA]; R31.0 Gross hematuria; K40.90 Unilateral inguinal hernia, without obstruction or gangrene, not specified as recurrent; Z77.22 Contact with and (suspected) exposure to environmental tobacco smoke (acute) (chronic)
CPT/HCPCS: 72197; 74178; A9579; Q9967

== ENCOUNTER → 2023-04-06 10:35 | Outpatient (CLI) | payer OTHER, SELFPAY ==
[2023-04-06 11:29] LABS: Estimated Glomerular Filt Rate > 60 mL/min (>60)
--- NOTE | 2023-04-11 | DI.CT.S_ITS ---
PROCEDURE: CT SOFT TISSUE NECK W CON INDICATIONS: SWELLING, MASS AND LUMP TECHNIQUE: After the administration of intravenous contrast, 3.0 mm axial sections acquired from the sella to the aortic arch. Additional oblique axial 3.0 mm sections acquired through the pharynx. 3 mm thick coronal and sagittal reformats were generated. For radiation dose reduction, the following was used: automated exposure control. COMPARISON: None. FINDINGS: Image quality: There is artifact associated with the metallic hardware. Artifact from the metallic hardware is reduced by metal reconstruction algorithm. Lymph nodes: No enlarged lymph nodes seen throughout the neck. Vessels: Visualized vasculature appears patent. Atherosclerotic calcification is noted. Neck spaces: The area of clinical concern is marked on the left, as on series 2, image 58. This corresponds to a normal appearing sternocleidomastoid muscle. The left sternocleidomastoid muscle is slightly more prominent than the right. No masses or other significant abnormalities can be seen. The oropharynx, nasopharynx, and pharynx demonstrate no mucosal lesions. The vocal cords, false vocal cords, pyriform sinuses, epiglottis, vallecula, and tongue base all appear normal. Glands: The parotid and submandibular glands appear normal. Thyroid gland demonstrates no significant abnormality. Miscellaneous: Visualized brain and orbits appear normal. Lung apices appear clear. Superficial soft tissues appear normal. Bones: No suspicious bony lesions. Visualized sinuses and mastoids appear unremarkable. Moderate cervical spine degenerative change is seen. IMPRESSION: The marked area of clinical concern corresponds to a normal appearing left sternocleidomastoid muscle, which is slightly more prominent than the contralateral right sternocleidomastoid muscle. Dictated by: Je Duncan M.D. on 04/11/2023 at 14:10 Approved by: Je Duncan M.D. on 04/11/2023 at 14:12
== END ==
PROVIDERS: PCP Internal Medicine; Referring Provider Radiology Diagnostic Radiology; Visit Provider Radiology Diagnostic Radiology
DX: R31.0 Gross hematuria (principal); R22.1 Localized swelling, mass and lump, neck
CPT/HCPCS: 36415; 82565

== ENCOUNTER → 2023-04-11 | Outpatient (CLI) | payer OTHER, SELFPAY | PROVIDERS: PCP Internal Medicine; Referring Provider Otolaryngology; Visit Provider Otolaryngology | DX: R22.1 Localized swelling, mass and lump, neck (principal) | CPT/HCPCS: 70491; Q9967 ==

== ENCOUNTER → 2023-06-30 08:23 | Outpatient (CLI) | payer OTHER, SELFPAY ==
[2023-06-30 09:15] LABS: Influenza A - CEPHEID Flu A NEGATIVE (NEGATIVE); Influenza B - CEPHEID Flu B NEGATIVE (NEGATIVE); Respiratory Syncytial Virus Negative (Negative)
[2023-06-30 09:38] LABS: COVID-19 CEPHEID 4-PLEX PCR Negative (Negative)
== END ==
PROVIDERS: PCP Internal Medicine; Visit Provider Registered Nurse
DX: R05.8 Other specified cough (principal)
CPT/HCPCS: 0241U

== ENCOUNTER → 2023-09-07 15:08 | Outpatient (CLI) | payer OTHER, SELFPAY ==
--- NOTE | 2023-09-07 15:09 | DI.RAD.S_ITS ---
PROCEDURE: XR CHEST 2V INDICATIONS: Cough TECHNIQUE: 2 views of the chest were acquired. COMPARISON: [facility], CR, XR CHEST 1V, 09/03/2021, 18:36. FINDINGS: Surgical changes and devices: None. Lungs and pleura: Lungs are clear. No pleural effusions or pneumothorax. Mediastinum: Mediastinal contours are normal. Heart size is normal. Bones and chest wall: No suspicious bony abnormalities. Soft tissues appear unremarkable. IMPRESSION: No acute cardiopulmonary abnormality is seen. Dictated by: Obdulio Prince M.D. on 09/07/2023 at 16:28 Approved by: Obdulio Prince M.D. on 09/07/2023 at 16:28
== END ==
PROVIDERS: PCP Internal Medicine; Referring Provider Nurse Practitioner Family; Visit Provider Nurse Practitioner Family
DX: R05.9 Cough, unspecified (principal)
CPT/HCPCS: 71046

== ENCOUNTER → 2024-03-14 09:58 | Outpatient (CLI) | payer OTHER, SELFPAY ==
--- NOTE | 2024-03-14 10:00 | DI.RAD.S_ITS ---
PROCEDURE: XR CHEST 2V INDICATIONS: cough>4 weeks, fatigue TECHNIQUE: 2 views of the chest were acquired. COMPARISON: [facility], CR, XR CHEST 2V, 09/07/2023, 14:18. FINDINGS: Surgical changes and devices: None. Lungs and pleura: Mild left basilar subsegmental atelectasis. Lungs are otherwise clear. No pleural effusions or pneumothorax. Mediastinum: Mediastinal contours are normal. Heart size is normal. Bones and chest wall: No suspicious bony abnormalities. Soft tissues appear unremarkable. IMPRESSION: No acute cardiothoracic process. Dictated by: Valdez Davila M.D. on 03/14/2024 at 10:11 Approved by: Valdez Davila M.D. on 03/14/2024 at 10:13
== END ==
PROVIDERS: PCP Internal Medicine; Referring Provider Student in an Organized Health Care Education/Training Program; Visit Provider Student in an Organized Health Care Education/Training Program
DX: R05.8 Other specified cough (principal); R53.83 Other fatigue
CPT/HCPCS: 71046

== ENCOUNTER → 2024-12-25 10:30 | Outpatient (CLI) | payer OTHER, SELFPAY ==
[2024-12-25 11:02] LABS: Add Manual Diff / Slide Review NO; Hematocrit 43.6 % (41-53); Hemoglobin 14.9 g/dL (13.5-17.5); Lymphocytes Absolute Auto 900 /uL (1100-4500); Mean Corpuscular HGB Conc 34.2 % (30-36); Mean Corpuscular Hemoglobin 30.0 PG (26-34); Mean Corpuscular Volume 87.6 fL (80-100); Platelet Count 226 X10^3/uL (150-400)
[2024-12-25 12:57] LABS: Alanine Aminotransferase 40 IU/L (<50); Albumin 4.5 g/dL (3.5-5.0); Albumin Globulin Ratio 1.5 (1.0-2.8); Alkaline Phosphatase 91 U/L (38-126); Blood Urea Nitrogen 19 mg/dL (9-20); Calcium 9.5 mg/dL (8.4-10.2); Carbon Dioxide 28 mmol/L (22-32); Chloride 104 mmol/L (98-107); Estimated Glomerular Filt Rate > 60 mL/min (>60); Globulin 3.1 g/dL (1.7-4.1); Glucose 94 mg/dL (70-99); HEMOLYSIS < 15 (0-50); Magnesium 2.1 mg/dL (1.6-2.3); Potassium 4.1 mmol/L (3.4-5.1); Sodium 141 mmol/L (137-145); Total Protein 7.6 g/dL (6.3-8.2)
== END ==
PROVIDERS: PCP Internal Medicine; Referring Provider Internal Medicine; Visit Provider Internal Medicine
DX: I10 Essential (primary) hypertension (principal); I48.20 Chronic atrial fibrillation, unspecified; Z79.01 Long term (current) use of anticoagulants
CPT/HCPCS: 36415; 80053; 83735; 85025

== ENCOUNTER 2025-02-02 07:37 | Observation (INO) | payer OTHER, SELFPAY ==
[2025-02-02] VITALS (46 sets, daily range): BP systolic 79–126; BP diastolic 50–78; PULSE 75–122; RESP 2–27; TEMP 36.1–37.2; O2SAT 95–100; BMI 34.7
--- NOTE | 2025-02-02 | PATH_ITS ---
[facility] Accession Number: [id number] No. of containers..02 Tissue . 01 Material submitted: . PART A: stomach - ANTRAL PART B: stomach - GASTRIC OF INCISURA . 01 Diagnosis: Part A: ANTRAL: Helicobacter pylori gastritis, with intestinal metaplasia. No dysplasia or malignancy identified. . Part B: GASTRIC OF INCISURA: 1. 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 2. Negative for HER2 overexpression (0+). 3. Positive for Helicobacter organisms. See comment. . Specimen Comments: Atypical glands are present at the base of the ulcer among strands of smooth muscle consistent with muscularis mucosae. No definite stromal desmoplasia is seen. The changes are consistent with at least intramucosal adenocarcinoma. The features are concerning for the possibility of invasive adenocarcinoma, although definitive invasion is not seen in this sample. Correlation with clinical and imaging features is recommended for further evaluation. . This case has also been reviewed by Dr. Reinier Caballero, who concurs with the diagnosis. The preliminary diagnosis of at least intramucosal adenocarcinoma was discussed with Dr. Vazquez by Dr. Churchill on 02/13/2025 at 1545. STO 02/16/2025 1152 Local . 01 Electronically signed: . Everardo Churchill MD, Pathologist NPI- [id number] . 01 Gross description: . . . . . . . . . . Received are two formalin-filled containers both labeled with the patient's name. . A. In a container labeled antral. The specimen consists of two fragments of yancey, soft tissue which range in size from 0.2 x 0.2 x 0.2 cm to 0.3 x 0.3 x 0.2 cm. All fragments are totally submitted in cassette A1. . B. In a container labeled gastric bx incisura. The specimen consists of three fragments of yancey, soft tissue which range in size from 0.1 x 0.1 x 0.1 cm to 0.3 x 0.2 x 0.2 cm. All fragments are totally submitted in cassette B1. ([id number]) /JOLYNN 02/16/2025 1210 Local . 01 Microscopic: . Part A: ANTRAL: An immunohistochemical stain was performed, revealing the presence of rare bacterial forms compatible with Helicobacter organisms. The control stains appropriately. * This test was developed and the performance characteristics were validated by [facility]. It has not been cleared or approved by the Food and Drug Administration. . Part B: GASTRIC OF INCISURA: An immunohistochemical stain was performed, revealing the presence of Helicobacter organisms. The control stains appropriately. * This test was developed and the performance characteristics were validated by [facility]. It has not been cleared or approved by the Food and Drug Administration. . HER2 (4b5) status was evaluated by immunohistochemical analysis. The malignant cells are negative (0+) for HER2 (4b5) expression, with controls staining appropriately. TECHNICAL NOTES: Scoring criteria for HER2 expression by immunohistochemistry for gastric and esophagogastric junction adenocarcinoma is based on the current ASCO/CAP 2013 guidelines (as used in the ToGA trial, Bang et al, Lancet. 2010;376(4373):030-833). Deparaffinized sections of formalin fixed tissue (along with appropriate positive controls) are incubated with the above antibody(s). Using the automated Exline stainer, tissue is incubated with the designated antibody which is then localized by a non-biotin, dual polymer detection system. The external controls are reviewed for appropriate reactivity and found to be adequate. Results on the target cell population are indicated above. Cold ischemic time is not provided. These tests have not been validated on decalcified tissue. This test was developed and the performance characteristics were validated by [facility]. It has not been cleared or approved by the Food and Drug Administration. . 01 Pathologist provided ICD-10: B96.81, C16.9, K25.9 . 01 CPT . 275730, 614723, H17737, L10031 Specimen Comment: A courtesy copy of this report has been sent to [facility] Pathology Performed at: [address] [address], [place], [place] [id number] MD Everardo Churchill MD Phone: [phone]
--- NOTE | 2025-02-02 07:46 | EKG_ITS ---
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
--- NOTE | 2025-02-02 07:58 | ED_ITS ---
HPI - Dizziness General Chief Complaint: Dizziness Stated Complaint: Low blood pressure, Dizzy, feels hot 1 day Time Seen by Provider: 02/02/25 07:44 Source: patient Mode of arrival: Wheelchair History of Present Illness HPI Narrative: Patient with history atrial fibrillation, chronic, on Coumadin and diltiazem. History of high blood pressure UTI BPH, here with for complaints of urinary frequency chills feeling dizzy since yesterday afternoon. Patient is not have his morning medications this morning. Primary care is Dr. Liao. Patient states feels similar to previous UTIs in the past. No sick contacts no foreign travel. Has a cough. But no chest pain or shortness of breath no abdominal pain. states INR has been between 2 and 3 Related Data Home Medications ?Medication ?Instructions ?Recorded ?Confirmed Respironics Dreamstation-2 CPAP #1 ea 06/10/21 5 Ocusight 1 tab PO BID 07/07/22 Previous Rx's ?Medication ?Instructions ?Recorded lancets 21 gauge (BD Microtainer #200 ea 02/18/24 Lancet) prothrombin time test strips #48 ea 06/30/24 (Coaguchek XS strips) diltiazem HCl 120 mg 120 mg PO DAILY #90 caps 12/11 capsule,extended release 24 hr (Cardizem CD) hydrochlorothiazide 25 mg tablet 25 mg PO QDAY #90 tab s 12/25/24 tamsulosin 0.4 mg capsule 0.8 mg (2 x 0.4 mg) PO BEDTI ME 12/25/24 #180 caps omeprazole 40 mg capsule,delayed 40 mg PO BID #60 caps 02/04/25 release sucralfate 1 gram tablet 1 g PO QACHS #120 tabs 02/04 Allergies Allergy/AdvReac Type Severity Reaction Status Date / Time tetracycline (TETRACYCLINE) Allergy Mild RASH Verified 02/02/25 07:48 Bnfyaxz-LXB-RyF Reductase AdvReac Intermediate MYALGIAS Verified 02/02/25 07:48 Inhibitor ([id number]-CDV-WYE REDUCTASE INHIBITOR) Review of Systems Review of Systems Narrative: GENERAL: Positive chills, fatigue, malaise, fever, sweats. HEENT: Negative sinus pain, ear pain, sore throat RESPIRATORY: Negative dyspnea, cough CARDIOVASCULAR: Negative chest pain, palpitations GASTROINTESTINAL: Negative vomiting, nausea, abdominal pain : Positive dysuria, frequency, negative hematuria MUSCULOSKELETAL: Negative muscle or bony pain SKIN: Negative rash, skin lesions NEUROLOGIC: Negative weakness, numbness, positive dizzy ROS Unobtainable: All systems reviewed & are unremarkable except as noted in HPI and below Patient History Medical History Lower urinary tract symptoms Benign prostatic hyperplasia Persistent microscopic hematuria Secondhand smoke exposure Gross hematuria Osteoarthritis of right knee BCC (basal cell carcinoma), scalp/neck (01/01/14) Basal cell carcinoma (BCC) of left shoulder (10/12/09) Elevated prostate specific antigen (PSA) (02/02/15) Chronic atrial fibrillation (03/28/13) Anticoagulated on warfarin (08/28/12) Essential hypertension Obstructive sleep apnea syndrome Mixed hyperlipidemia Surgical History History of basal cell carcinoma (BCC) excision (10/12/09) Status post Mohs micrographic surgery for basal cell carcinoma (BCC) (01/01/14) History of colonoscopy (05/19/16) S/P UPPP (uvulopalatopharyngoplasty) (1995) History of inguinal hernia repair (1967) Status post appendectomy (1958) Social History household members: spouse Smoking Status: Former smoker alcohol intake: never Smoking Status: Former smoker alcohol intake frequency: 0-2 drinks per day Exam Narrative Exam Narrative: GENERAL: in no distress, not toxic not dyspneic however, pale appearance. HEAD: Normocephalic. EYES: Pupils equal round ENT: Mucous membranes moist. NECK: Trachea midline. CARDIOVASCULAR: Tachycardic with irregular irregular RESPIRATORY: Clear to auscultation. Breath sounds equal bilaterally. No wheezes, rales, or rhonchi. GASTROINTESTINAL: Abdomen soft, non-tender, no peritoneal signs bowel sounds are present. No guarding or rebound. No CVA tenderness, hemoccult positive. Dark stool on glove. BACK: No flank tenderness. EXTREMITIES: No gross deformities. NEURO: AOx4. Clear speech SKIN: Warm and dry PSYCH: Not anxious, is cooperative Initial Vital Signs Initial Vital Signs: Vital Signs Pulse Rate 98 H 02/02/25 07:42 Blood Pressure 123/60 02/02/25 07:42 Pulse Oximetry 96 02/02/25 07:42 Course Orders Ordered: Discontinued Medications Diltiazem HCl (Diltiazem Cd 120 Mg Cap) 120 mg PO DAILY [facility] Last Admin: 02/04/25 08:22 Dose: 120 mg Documented By: Admin: 02/03/25 09:27 Dose: 120 mg Documented By: RAFAEL Hydrochlorothiazide (Hydrochlorothiazide 25 Mg Tablet) 25 mg PO DAILY [facility] Last Admin: 02/04/25 08:22 Dose: 25 mg Documented By: Admin: 02/03/25 09:26 Dose: 25 mg Documented By: Admin: 02/03/25 00:12 Dose: 25 mg Documented By: Hydromorphone HCl (Hydromorphone Hcl 0.5 Mg/0.5 Ml Syringe) 0.5 mg IV Q2H PRN PRN Reason: Pain, Severe (7-10) Hydromorphone HCl (Hydromorphone 1 Mg/Ml Syringe) 0 mg IV Q5MIN PRN PRN Reason: Pain, Mild (1-3) Sodium Chloride (Normal Saline 0.9%) 1,000 mls @ 1,000 mls/hr IV BOLUS ONE Stop: 02/02/25 08:44 Last Infusion: 02/02/25 09:43 Dose: Infused Documented By: Admin: 02/02/25 08:13 Dose: 1,000 mls/hr Documented By: DANIA Sodium Chloride (Normal Saline 0.9%) 1,000 mls @ 1,000 mls/hr IV BOLUS ONE Stop: 02/02/25 08:56 Last Infusion: 02/02/25 09:43 Dose: Infused Documented By: Admin: 02/02/25 08:13 Dose: 1,000 mls/hr Documented By: DANIA Ceftriaxone Sodium 2,000 mg/ (Sodium Chloride) 100 mls @ 200 mls/hr IV NOW ONE Stop: 02/02/25 10:01 Last Infusion: 02/02/25 10:56 Dose: Infused Documented By: Admin: 02/02/25 10:07 Dose: 200 mls/hr Documented By: DANIA Tranexamic Acid 1,000 mg/ (Sodium Chloride) 100 mls @ 200 mls/hr IV INTRA-OP ONE Stop: 02/02/25 12:23 Last Infusion: 02/02/25 12:39 Dose: Infused Documented By: Admin: 02/02/25 12:08 Dose: 200 mls/hr Documented By: SGF Prothrombin Complex Concent ( Human) 3,000 unit/ Prothrombin Complex Concent (Human) 500 unit/ Miscellaneous 140 mls @ 819.185 mls/hr IV NOW ONE Stop: 02/02/25 12:25 Last Infusion: 02/02/25 12:59 Dose: Infused Documented By: Admin: 02/02/25 12:37 Dose: 3 unit/kg/min, 819.185 mls/hr Documented By: SGCesar Acetaminophen (Ofirmev) 1,000 mg in 100 mls @ 400 mls/hr IV NOW ONE Stop: 02/02/25 12:28 Last Infusion: 02/02/25 13:17 Dose: Infused Documented By: Admin: 02/02/25 12:56 Dose: 400 mls/hr Documented By: SGF Acetaminophen (Ofirmev) 1,000 mg in 100 mls @ 400 mls/hr IV NOW ONE Stop: 02/02/25 12:29 Last Admin: 02/02/25 12:34 Dose: Not Given Documented By: DANIA Sodium Chloride (Normal Saline 0.9%) 1,000 mls @ 100 mls/hr IV CONT GUME Last Infusion: 02/03/25 22:26 Dose: 0 mls/hr Documented By: Admin: 02/03/25 19:59 Dose: 100 mls/hr Documented By: Infusion: 02/03/25 19:35 Dose: Infused Documented By: Admin: 02/03/25 09:35 Dose: 100 mls/hr Documented By: Infusion: 02/03/25 09:35 Dose: Infused Documented By: Admin: 02/02/25 23:50 Dose: 100 mls/hr Documented By: Lactated Ringer's (Lactated Ringers) 1,000 mls @ 42 mls/hr IV CONT GUME Last Infusion: 02/04/25 07:00 Dose: Infused Documented By: Admin: 02/02/25 17:21 Dose: 42 mls/hr Documented By: FABIANO Lactated Ringer's (Lactated Ringers) 1,000 mls @ 42 mls/hr IV CONT [facility] Last Admin: 02/03/25 00:06 Dose: Not Given Documented By: Dextrose (D10w) 100 mls @ 999 mls/hr IV PRN PRN PRN Reason: Hypoglycemia Lutein (Vit C/E/Zn/Coppr/Lutein/Zeaxan Capsule) 1 cap PO BID [facility] Last Admin: 02/04/25 08:22 Dose: 1 cap Documented By: Admin: 02/03/25 19:59 Dose: 1 cap Documented By: Admin: 02/03/25 09:27 Dose: 1 cap Documented By: RAFAEL Meperidine HCl (Meperidine 50 Mg/Ml Inj) 25 mg IV PACUNOW PRN PRN Reason: Moderate pain or shivering Naloxone HCl (Naloxone 0.4 Mg/Ml Vial) 0.2 mg IV Q2MIN PRN PRN Reason: Opiate Reversal Ondansetron HCl (Ondansetron 4 Mg/2 Ml Inj) 4 mg IV NOW PRN PRN Reason: Nausea And Vomiting Pantoprazole Sodium (Pantoprazole 40 Mg Vial) 80 mg IV NOW ONE Stop: 02/02/25 10:08 Last Admin: 02/02/25 10:16 Dose: 80 mg Documented By: DANIA Pantoprazole Sodium (Pantoprazole 40 Mg Vial) 40 mg IV BID [facility] Last Admin: 02/04/25 08:21 Dose: 40 mg Documented By: Admin: 02/03/25 19:59 Dose: 40 mg Documented By: Admin: 02/03/25 09:35 Dose: 40 mg Documented By: Admin: 02/02/25 23:51 Dose: 40 mg Documented By: Potassium Chloride (Potassium Chloride 20 Meq Tab) 40 meq PO NOW ONE Stop: 02/03/25 12:16 Last Admin: 02/03/25 12:44 Dose: 40 meq Documented By: RAFAEL Potassium Chloride (Potassium Chloride 20 Meq Tab) 40 meq PO NOW ONE Stop: 02/04/25 08:07 Last Admin: 02/04/25 08:22 Dose: 40 meq Documented By: [place] Potassium Chloride (Potassium Chloride 20 Meq Tab) 40 meq PO NOW ONE Stop: 02/04/25 11:01 Last Admin: 02/04/25 10:53 Dose: 40 meq Documented By: [place] Sodium Chloride (Sodium Chloride 0.9% Flush) 10 ml IV PRN PRN PRN Reason: Flush Sodium Chloride (Sodium Chloride 0.9% Flush) 10 ml IV BID [facility] Last Admin: 02/04/25 08:22 Dose: 10 ml Documented By: Admin: 02/03/25 19:59 Dose: 10 ml Documented By: Admin: 02/03/25 09:35 Dose: 10 ml Documented By: Admin: 02/02/25 23:51 Dose: 10 ml Documented By: Sucralfate (Sucralfate 1 Gm/10 Ml Oral Susp) 1 gm PO Q6HR [facility] Last Admin: 02/04/25 06:27 Dose: 1 gm Documented By: Admin: 02/04/25 04:01 Dose: Not Given Documented By: Admin: 02/03/25 17:58 Dose: 1 gm Documented By: Admin: 02/03/25 12:44 Dose: 1 gm Documented By: Admin: 02/03/25 06:09 Dose: 1 gm Documented By: Admin: 02/03/25 00:12 Dose: 1 gm Documented By: Tamsulosin HCl (Tamsulosin 0.4 Mg Capsule) 0.8 mg PO BEDTIME [facility] Last Admin: 02/03/25 19:59 Dose: 0.8 mg Documented By: Admin: 02/02/25 23:52 Dose: 0.8 mg Documented By: Vital Signs Vital signs: Vital Signs - 8 hr 02/02/25 07:42 02/02/25 07:42 02/02/25 07:45 Temperature 97.9 F Pulse Rate 98 H 115 H Respiratory Rate 16 Blood Pressure 123/60 123/60 Pulse Oximetry 96 96 Oxygen Delivery Method Room Air 02/02/25 08:00 02/02/25 08:30 02/02/25 09:00 Temperature Pulse Rate 107 H 96 H 92 H Respiratory Rate 22 10 L 12 Blood Pressure Pulse Oximetry 97 98 99 Oxygen Delivery Method 02/02/25 09:07 02/02/25 09:07 02/02/25 09:10 Temperature Pulse Rate 90 85 Respiratory Rate 17 24 Blood Pressure 99/50 L Pulse Oximetry 98 98 Oxygen Delivery Method 02/02/25 09:10 02/02/25 09:11 02/02/25 09:15 Temperature 98.0 F Pulse Rate 89 Respiratory Rate 15 Blood Pressure 98/55 L Pulse Oximetry 97 Oxygen Delivery Method 02/02/25 09:15 02/02/25 09:30 02/02/25 09:30 Temperature Pulse Rate 94 H Respiratory Rate 20 Blood Pressure 100/56 L 97/56 L Pulse Oximetry 99 Oxygen Delivery Method 02/02/25 09:45 02/02/25 09:45 02/02/25 10:00 Temperature Pulse Rate 92 H 100 H Respiratory Rate 14 27 H Blood Pressure 101/59 L Pulse Oximetry 99 Oxygen Delivery Method 02/02/25 10:10 02/02/25 10:10 02/02/25 10:15 Temperature Pulse Rate 98 H 94 H Respiratory Rate 25 H 20 Blood Pressure 116/66 Pulse Oximetry 98 99 Oxygen Delivery Method 02/02/25 10:15 02/02/25 10:30 02/02/25 10:30 Temperature Pulse Rate 105 H Respiratory Rate 14 Blood Pressure 108/58 L 115/62 Pulse Oximetry 99 Oxygen Delivery Method MDM - Dizziness Lab Data 02/04/25 04:28 02/04/25 04:28 Labs: Lab Results 02/02/25 02/02/25 02/02/25 Range/Units 07:57 08:25 09:48 WBC 7.2 (4.5-11.0) X10^3/uL RBC 3.42 L (4.5-5.9) X10^6/uL Hgb 10.4 L (13.5-17.5) g/dL Hct 30.4 L (41-53) % MCV 88.8 (80-100) fL MCH 30.6 (26-34) PG MCHC 34.4 (30-36) % RDW 12.8 (11.6-14.8) % Plt Count 197 (150-400) X10^3/uL Neut % (Auto) 78.8 H (50-75) % Lymph % (Auto) 14.8 L (25-40) % [place] % (Auto) 5.2 (3-14) % Eos % (Auto) 0.6 L (2-4) % Baso % (Auto) 0.6 (0-2) % Neut # (Auto) 5700 (6462-1029) /uL Lymph # (Auto) 1100 (0977-4400) /uL [place] # (Auto) 400 (0-900) /uL Eos # (Auto) 0 (0-450) /uL Baso # (Auto) 0 (0-100) /uL PT 47.9 H (9.4-12.5) SECONDS INR 4.4 H (0.9-1.3) APTT 34 (25.1-36.5) SECONDS Sodium 140 (137-145) mmol/L Potassium 4.0 (3.4-5.1) mmol/L Chloride 109 H (98-107) mmol/L Carbon Dioxide 25 (22-32) mmol/L BUN 57 H (9-20) mg/dL Creatinine 0.70 (0.66-1.25) mg/dL Estimated GFR > 60 (>60) mL/min BUN/Creatinine Ratio 81.4 H (6-22) Glucose 137 H (70-99) mg/dL Lactate 2.3 H 1.9 (0.7-2.1) mmol/L Calcium 8.3 L (8.4-10.2) mg/dL Total Bilirubin 0.4 (0.2-1.3) mg/dL AST 46 (17-59) IU/L ALT 34 (<50) IU/L Alkaline Phosphatase 59 (38-126) U/L Total Protein 6.1 L (6.3-8.2) g/dL Albumin 3.5 (3.5-5.0) g/dL Globulin 2.6 (1.7-4.1) g/dL Albumin/Globulin Ratio 1.3 (1.0-2.8) Procalcitonin 0.126 (<0.5) ng/mL Urine RBC 1-5/hpf (0-5/HPF) Urine WBC None seen (0-5/HPF) Ur Squamous Epith Cells None seen (0-5/HPF) Urine Bacteria None seen (None) Ur Culture Indicated? Cult not indicated Vol Urine Centrifuged 10ml (spun) Chlamy pneumoniae PCR Not detected (Not Detect) Adenovirus (PCR) Not detected (Not Detect) B. pertussis DNA (PCR) Not detected (Not Detect) B.parapertussis DNA PCR Not detected (Not Detecte) Coronavirus OC43 (PCR) Not detected (Not Detect) Coronavirus HKU1 (PCR) Not detected (Not Detect) Coronavirus 229E (PCR) Not detected (Not Detect) SARS-CoV-2 (PCR) Not detected (Not Detecte) Coronavirus NL63 (PCR) Not detected (Not Detect) Human Metapneumovir PCR Not detected (Not Detect) Influenza Type A (PCR) Not detected (Not Detect) Influenza Type B (PCR) Not detected (Not Detect) M. pneumoniae (PCR) Not detected (Not Detect) Parainfluenza 1 (PCR) Not detected (Not Detect) Parainfluenza 2 (PCR) Not detected (Not Detect) Parainfluenza 3 (PCR) Not detected (Not Detect) Parainfluenza 4 (PCR) Not detected (Not Detect) RSV (PCR) Not detected (Not Detect) Entero/Rhino (PCR) Not detected (Not Detect) Blood Type Antibody Screen Crossmatch 02/02/25 Range/Units 10:24 WBC (4.5-11.0) X10^3/uL RBC (4.5-5.9) X10^6/uL Hgb (13.5-17.5) g/dL Hct (41-53) % MCV (80-100) fL MCH (26-34) PG MCHC (30-36) % RDW (11.6-14.8) % Plt Count (150-400) X10^3/uL Neut % (Auto) (50-75) % Lymph % (Auto) (25-40) % [place] % (Auto) (3-14) % Eos % (Auto) (2-4) % Baso % (Auto) (0-2) % Neut # (Auto) (6690-9099) /uL Lymph # (Auto) (9032-4707) /uL [place] # (Auto) (0-900) /uL Eos # (Auto) (0-450) /uL Baso # (Auto) (0-100) /uL PT (9.4-12.5) SECONDS INR (0.9-1.3) APTT (25.1-36.5) SECONDS Sodium (137-145) mmol/L Potassium (3.4-5.1) mmol/L Chloride (98-107) mmol/L Carbon Dioxide (22-32) mmol/L BUN (9-20) mg/dL Creatinine (0.66-1.25) mg/dL Estimated GFR (>60) mL/min BUN/Creatinine Ratio (6-22) Glucose (70-99) mg/dL Lactate (0.7-2.1) mmol/L Calcium (8.4-10.2) mg/dL Total Bilirubin (0.2-1.3) mg/dL AST (17-59) IU/L ALT (<50) IU/L Alkaline Phosphatase (38-126) U/L Total Protein (6.3-8.2) g/dL Albumin (3.5-5.0) g/dL Globulin (1.7-4.1) g/dL Albumin/Globulin Ratio (1.0-2.8) Procalcitonin (<0.5) ng/mL Urine RBC (0-5/HPF) Urine WBC (0-5/HPF) Ur Squamous Epith Cells (0-5/HPF) Urine Bacteria (None) Ur Culture Indicated? Vol Urine Centrifuged Chlamy pneumoniae PCR (Not Detect) Adenovirus (PCR) (Not Detect) B. pertussis DNA (PCR) (Not Detect) B.parapertussis DNA PCR (Not Detecte) Coronavirus OC43 (PCR) (Not Detect) Coronavirus HKU1 (PCR) (Not Detect) Coronavirus 229E (PCR) (Not Detect) SARS-CoV-2 (PCR) (Not Detecte) Coronavirus NL63 (PCR) (Not Detect) Human Metapneumovir PCR (Not Detect) Influenza Type A (PCR) (Not Detect) Influenza Type B (PCR) (Not Detect) M. pneumoniae (PCR) (Not Detect) Parainfluenza 1 (PCR) (Not Detect) Parainfluenza 2 (PCR) (Not Detect) Parainfluenza 3 (PCR) (Not Detect) Parainfluenza 4 (PCR) (Not Detect) RSV (PCR) (Not Detect) Entero/Rhino (PCR) (Not Detect) Blood Type O Positive Antibody Screen Negative Crossmatch See Detail Point of Care Testing Stool Occult Blood Positive Urine Dip Bedside Urine Glucose Negative Bedside Urine Bilirubin - Negative Bedside Urine Ketone + 15 Urine Specific [place] 1.010 Bedside Urine Occult Blood ++ Bedside Urine pH 6.0 Bedside Urine Protein - Negative Bedside Urine Urobilinogen - Negative Bedside Urine Nitrite - Negative Bedside Urine Leukocytes - Negative Esterase Imaging Data Chest x-ray: Radiologist's Impression: [address] [address] XRay Report Signed Patient: Jhonatan Pendleton MR#: [id number] : 1945 Acct:[id number] Age/Sex: 79 / M Date of Service: 02/02/25 Loc: Accession Number: [id number] Procedure: XR chest 1V Ordering Provider: Rg Milian MD PROCEDURE: XR CHEST 1V INDICATIONS: Cough TECHNIQUE: One view of the chest was acquired. COMPARISON: [facility], , XR CHEST 2V, 03/14/2024, 9:57. FINDINGS: Surgical changes and devices: None. Lungs and pleura: Lungs are clear. No pleural effusions or pneumothorax. Mediastinum: Mediastinal contours appear normal. Heart size is normal. Bones and chest wall: No suspicious bony lesions. Overlying soft tissues appear unremarkable. IMPRESSION: No acute cardiopulmonary pathology. Dictated by: Jose G Espitia M.D. on 02/02/2025 at 8:10 Approved by: Jose G Espitia M.D. on 02/02/2025 at 8:13 CT chest abdomen and pelvis: Radiologist's Impression: [facility] [address] [place] [id number] Scan Report Signed Patient: Jhonatan Pendleton MR#: [id number] : 1945 Acct:[id number] Age/Sex: 79 / M Date of Service: 02/02/25 Loc: 90-1 Accession Number: [id number] Procedure: CT chest abd pel w con Ordering Provider: Rg Milian MD PROCEDURE: CT CHEST ABD PEL W CON INDICATIONS: Sepsis TECHNIQUE: After the administration of intravenous contrast, 5 mm thick sections acquired from the lung apices to the symphysis. 5 mm coronal and sagittal reformats were performed, with additional 7 mm MIP reformats through the lungs. For radiation dose reduction, the following was used: automated exposure control, adjustment of mA and/or kV according to patient size. COMPARISON: None. FINDINGS: Image quality: Excellent. CHEST: Lower Neck: No enlarged lymph nodes. Thyroid: No thyroid nodules which require sonographic follow up, per consensus guidelines. Axillae: No enlarged lymph nodes. Chest Wall: Unremarkable. Lungs and Pleura: No pneumothorax or pleural effusions. Scattered atelectasis in periphery of bilateral lower lung lombardo are seen. No consolidation or suspicious nodules. Heart: Heart size is enlarged. No pericardial effusion. Thoracic Vessels: Borderline ascending thoracic aortic aneurysm measures up to 4.1 cm in largest AP diameter is seen. The pulmonary arteries demonstrate normal size. 3 vessel coronary artery atherosclerotic calcifications are seen. Mediastinum and Sandra: No enlarged lymph nodes. Esophagus: No wall thickening. No significant hiatal hernia. ABDOMEN: Liver: No solid mass. Gallbladder: No radiopaque gallstones or wall thickening. Biliary ducts: No biliary dilation. Pancreas: No ductal dilation. Spleen: Size is within normal limits. Adrenal Glands: No adrenal nodules. Kidneys and Ureters: Tiny nonobstructing stones are seen in bilateral kidneys measures 1-2 mm in size. No hydronephrosis. No solid mass. No complex renal cystic lesion which requires follow up. Nonspecific mild bilateral perinephric fat stranding is seen. Stomach and Bowel: Normal colonic caliber, without significant wall thickening. Moderate fecal stasis throughout the colon is seen. Colonic diverticulosis without CT evidence of acute diverticulitis. No abscess collection. Peritoneum: No abnormal intraperitoneal fluid. No free air. Ventral Wall: No significant ventral hernia. Abdominal Nodes: No retroperitoneal or mesenteric adenopathy by size criteria. Vessels: Aorta and inferior vena cava are normal in size. PELVIS: Pelvic Organs: Markedly enlarged prostate gland with lobulated contour and coarse internal calcifications. Bladder: Mild bladder wall thickening without significant perivesicular fat stranding. No calcified bladder stones. Pelvic Nodes: No enlarged lymph nodes. Miscellaneous: No inguinal hernias are seen. Bones: No aggressive osseous abnormality. IMPRESSION: 1. Markedly enlarged prostate gland with significant mass effect on floor of urinary bladder. Mild bladder wall thickening likely due to chronic outlet obstruction. Low-grade cystitis cannot be excluded. 2. No obstructing stones or hydronephrosis. Mild bilateral perinephric fat stranding. Low-grade infectious inflammatory pyelonephritis cannot be excluded. 3. No bowel obstruction or abnormal bowel wall thickening. No free fluid or free air. Sigmoid diverticulosis without CT evidence of acute diverticulitis. No abscess collection. 4. Scattered bibasilar dependent atelectasis. No focal infiltrate, pleural effusion or pneumothorax. 5. Marked cardiomegaly and severe 3 vessel coronary artery atherosclerotic calcifications. No pericardial effusion. Borderline ascending thoracic aortic aneurysm. Dictated by: Jose G Espitia M.D. on 02/02/2025 at 10:56 Approved by: Jose G Espitia M.D. on 02/02/2025 at 11:03 MDM Narrative Medical decision making narrative: Patient with history atrial fibrillation, chronic, on Coumadin and diltiazem. History of high blood pressure UTI BPH, here with for complaints of urinary frequency chills feeling dizzy since yesterday afternoon. Patient is not have his morning medications this morning. Primary care is Dr. Liao. Patient states feels similar to previous UTIs in the past. No sick contacts no foreign travel. Has a cough. But no chest pain or shortness of breath no abdominal pain. states INR has been between 2 and 3 MDM After history and exam, CBC CMP lactic acid procalcitonin urinalysis respiratory panel chest x-ray normal saline PT INR PTT Differential considered: Includes but not limited to sepsis UTI cystitis pneumonia viral syndrome Medical records reviewed: September 03, 2021 your visit for UTI Lab Test results independently reviewed as above. Pertinent findings: WBC 7.2 hemoglobin 10.4 INR 4.4 BUN 57 creatinine 0.7 procalcitonin 0.126 respiratory panel negative Independently reviewed EKG atrial fibrillation with RVR rate 106 Imaging studies independently reviewed: Chest x-ray negative, CT chest abdomen pelvis no acute finding Consultations: 10:00 a.m.. Spoke with General surgery, Dr. Vazquez, will follow in consult for endoscopy. Reviewed labs with him. 10:39 a.m.. I spoke with Dr. Liao, primary care, he will admit patient. I did inform him that I did allow patients take warfarin this morning. No Kcentra at this time. No vitamin K No TXA. Patient is stable. No transfusion indicated at this time. Re-evaluations: 10:10 a.m.. Updated patient results. Will need admission for possible GI bleed. Patient hemodynamically stable. Discussion: Appropriate for admission. IV contrast used for CT imaging. Patient likely has upper GI bleed will need admission for endoscopy. However INR is elevated and will need to decrease. No INR reversal medication at this time. No hematochezia. No abdominal pain. No TXA indicated at this time. Protonix has been ordered. Significant changes in CMP with BUN as well as hemoglobin levels in the last month. BUN elevation could be due to upper GI bleed. I did allow patient to take his Cardizem and warfarin at arrival because he is not is morning meds. He had no symptoms of GI bleed. He had more concern for UTI. Diagnosis: Upper GI bleed Discharge Plan Departure Patient Disposition: Admitted As Inpatient Clinical Impression: Acute upper gastrointestinal bleeding Admit Date/Time: 02/02/25 10:40 Admit Provider: Miguel Liao
[2025-02-02 08:06] LABS: Add Manual Diff / Slide Review NO; Hematocrit 30.4 % (41-53); Hemoglobin 10.4 g/dL (13.5-17.5); Lymphocytes Absolute Auto 1100 /uL (1100-4500); Mean Corpuscular HGB Conc 34.4 % (30-36); Mean Corpuscular Hemoglobin 30.6 PG (26-34); Mean Corpuscular Volume 88.8 fL (80-100); Platelet Count 197 X10^3/uL (150-400)
[2025-02-02] MEDS: SODIUM CHLORIDE 0.9% 1,000 ML 1000 ML IV ×2 (08:13)
[2025-02-02 08:14] LABS: INR 4.4 (0.9-1.3); Prothrombin Time 47.9 SECONDS (9.4-12.5)
[2025-02-02 08:16] LABS: PTT Partial Thromboplastin Tim 34 SECONDS (25.1-36.5)
[2025-02-02 08:18] LABS: Lactate (Lactic Acid) 2.3 mmol/L (0.7-2.1)
[2025-02-02 08:19] LABS: Alanine Aminotransferase 34 IU/L (<50); Albumin 3.5 g/dL (3.5-5.0); Albumin Globulin Ratio 1.3 (1.0-2.8); Alkaline Phosphatase 59 U/L (38-126); Blood Urea Nitrogen 57 mg/dL (9-20); Calcium 8.3 mg/dL (8.4-10.2); Carbon Dioxide 25 mmol/L (22-32); Chloride 109 mmol/L (98-107); Estimated Glomerular Filt Rate > 60 mL/min (>60); Globulin 2.6 g/dL (1.7-4.1); Glucose 137 mg/dL (70-99); HEMOLYSIS 28 (0-50); Potassium 4.0 mmol/L (3.4-5.1); Sodium 140 mmol/L (137-145); Total Protein 6.1 g/dL (6.3-8.2)
[2025-02-02 08:36] LABS: Procalcitonin 0.126 ng/mL (<0.5)
[2025-02-02 08:42] LABS: Culture Indicated Urine Cult Not Indicated
[2025-02-02 09:20] LABS: Coronavirus NL 63 Not Detected (Not Detect); SARS- CoV-2 Not Detected (Not Detecte)
[2025-02-02 09:38] LABS: Reflexed Lactate in 2 Hours Y
--- NOTE | 2025-02-02 09:50 | DI.CT.S_ITS ---
PROCEDURE: CT CHEST ABD PEL W CON INDICATIONS: Sepsis TECHNIQUE: After the administration of intravenous contrast, 5 mm thick sections acquired from the lung apices to the symphysis. 5 mm coronal and sagittal reformats were performed, with additional 7 mm MIP reformats through the lungs. For radiation dose reduction, the following was used: automated exposure control, adjustment of mA and/or kV according to patient size. COMPARISON: None. FINDINGS: Image quality: Excellent. CHEST: Lower Neck: No enlarged lymph nodes. Thyroid: No thyroid nodules which require sonographic follow up, per consensus guidelines. Axillae: No enlarged lymph nodes. Chest Wall: Unremarkable. Lungs and Pleura: No pneumothorax or pleural effusions. Scattered atelectasis in periphery of bilateral lower lung lombardo are seen. No consolidation or suspicious nodules. Heart: Heart size is enlarged. No pericardial effusion. Thoracic Vessels: Borderline ascending thoracic aortic aneurysm measures up to 4.1 cm in largest AP diameter is seen. The pulmonary arteries demonstrate normal size. 3 vessel coronary artery atherosclerotic calcifications are seen. Mediastinum and Sandra: No enlarged lymph nodes. Esophagus: No wall thickening. No significant hiatal hernia. ABDOMEN: Liver: No solid mass. Gallbladder: No radiopaque gallstones or wall thickening. Biliary ducts: No biliary dilation. Pancreas: No ductal dilation. Spleen: Size is within normal limits. Adrenal Glands: No adrenal nodules. Kidneys and Ureters: Tiny nonobstructing stones are seen in bilateral kidneys measures 1-2 mm in size. No hydronephrosis. No solid mass. No complex renal cystic lesion which requires follow up. Nonspecific mild bilateral perinephric fat stranding is seen. Stomach and Bowel: Normal colonic caliber, without significant wall thickening. Moderate fecal stasis throughout the colon is seen. Colonic diverticulosis without CT evidence of acute diverticulitis. No abscess collection. Peritoneum: No abnormal intraperitoneal fluid. No free air. Ventral Wall: No significant ventral hernia. Abdominal Nodes: No retroperitoneal or mesenteric adenopathy by size criteria. Vessels: Aorta and inferior vena cava are normal in size. PELVIS: Pelvic Organs: Markedly enlarged prostate gland with lobulated contour and coarse internal calcifications. Bladder: Mild bladder wall thickening without significant perivesicular fat stranding. No calcified bladder stones. Pelvic Nodes: No enlarged lymph nodes. Miscellaneous: No inguinal hernias are seen. Bones: No aggressive osseous abnormality. IMPRESSION: 1. Markedly enlarged prostate gland with significant mass effect on floor of urinary bladder. Mild bladder wall thickening likely due to chronic outlet obstruction. Low-grade cystitis cannot be excluded. 2. No obstructing stones or hydronephrosis. Mild bilateral perinephric fat stranding. Low-grade infectious inflammatory pyelonephritis cannot be excluded. 3. No bowel obstruction or abnormal bowel wall thickening. No free fluid or free air. Sigmoid diverticulosis without CT evidence of acute diverticulitis. No abscess collection. 4. Scattered bibasilar dependent atelectasis. No focal infiltrate, pleural effusion or pneumothorax. 5. Marked cardiomegaly and severe 3 vessel coronary artery atherosclerotic calcifications. No pericardial effusion. Borderline ascending thoracic aortic aneurysm. Dictated by: Jose G Espitia M.D. on 02/02/2025 at 10:56 Approved by: Jose G Espitia M.D. on 02/02/2025 at 11:03
[2025-02-02 10:06] LABS: Lactate 2HR (Lactic Acid Rflx) 1.9 mmol/L (0.7-2.1)
[2025-02-02] MEDS: cefTRIAXone 2,000 MG in SODIUM CHLORIDE 0.9% 100 ML 200 MG IV (10:07)
[2025-02-02] MEDS: PANTOPRAZOLE 40 MG VIAL 80 MG IV (10:16)
--- NOTE | 2025-02-02 10:36 | P.CONS_ITS ---
History of Present Illness Consult details Date Patient Seen: 02/02/25 Time Patient Seen: 18:54 Chief complaint: Low blood pressure, Dizzy, feels hot 1 day Reason for consult: UGI bleed Requesting provider: Rg Milian Narrative: Surgery consult requested for 79yo M with UGI bleed. On Coumadin for afib. Hgb 10 in ED. C/O syncope. INR 4.4, BUN 57 suggesting possible UGI source for anemia. INR reversed to normal for urgent scope. Meds Home Medications and Allergies Home Medications ?Medication ?Instructions ?Recorded ?Confirmed ?Type Respironics Dreamstation-2 CPAP #1 ea 06/10/21 5 History Ocusight 1 tab PO BID 07/07/22 History lancets 21 gauge (BD Microtainer #200 ea 02/18/2401/17 Rx Lancet) warfarin 5 mg tablet See Rx Instructions .Route 0 05/27/24 02/02/25 Rx .COMPLEX #138 tabs prothrombin time test strips #48 ea 06/30/24 02/02/25 Rx (Coaguchek XS strips) diltiazem HCl 120 mg 120 mg PO DAILY #90 caps 12/1102/02/25 Rx capsule,extended release 24 hr (Cardizem CD) hydrochlorothiazide 25 mg tablet 25 mg PO QDAY #90 tab s 12/25/24 02/02/25 Rx tamsulosin 0.4 mg capsule 0.8 mg (2 x 0.4 mg) PO BEDTI ME 12/25/24 02/02/25 Rx #180 caps Allergies Allergy/AdvReac Type Severity Reaction Status Date / Time tetracycline (TETRACYCLINE) Allergy Mild RASH Verified 02/02/25 07:48 Mqmaodt-MRV-BlS Reductase AdvReac Intermediate MYALGIAS Verified 02/02/25 07:48 Inhibitor (QHVNYES-DDP-SCS REDUCTASE INHIBITOR) Exam Vital Signs (past 8 hours): - 02/02/25 07:42 02/02/25 07:42 02/02/25 07:45 Temperature 97.9 F Pulse Rate 98 H 115 H Respiratory Rate 16 Blood Pressure 123/60 123/60 Pulse Oximetry 96 96 Oxygen Delivery Method Room Air 02/02/25 08:00 02/02/25 08:30 02/02/25 09:00 Temperature Pulse Rate 107 H 96 H 92 H Respiratory Rate 22 10 L 12 Blood Pressure Pulse Oximetry 97 98 99 Oxygen Delivery Method 02/02/25 09:07 02/02/25 09:07 02/02/25 09:10 Temperature Pulse Rate 90 85 Respiratory Rate 17 24 Blood Pressure 99/50 L Pulse Oximetry 98 98 Oxygen Delivery Method 02/02/25 09:10 02/02/25 09:11 02/02/25 09:15 Temperature 98.0 F Pulse Rate 89 Respiratory Rate 15 Blood Pressure 98/55 L Pulse Oximetry 97 Oxygen Delivery Method 02/02/25 09:15 02/02/25 09:30 02/02/25 09:30 Temperature Pulse Rate 94 H Respiratory Rate 20 Blood Pressure 100/56 L 97/56 L Pulse Oximetry 99 Oxygen Delivery Method 02/02/25 09:45 02/02/25 09:45 02/02/25 10:00 Temperature Pulse Rate 92 H 100 H Respiratory Rate 14 27 H Blood Pressure 101/59 L Pulse Oximetry 99 Oxygen Delivery Method 02/02/25 10:10 02/02/25 10:10 02/02/25 10:15 Temperature Pulse Rate 98 H 94 H Respiratory Rate 25 H 20 Blood Pressure 116/66 Pulse Oximetry 98 99 Oxygen Delivery Method 02/02/25 10:15 Temperature Pulse Rate Respiratory Rate Blood Pressure 108/58 L Pulse Oximetry Oxygen Delivery Method Oxygen Delivery Method Room Air Narrative Exam Narrative: Const General: healthy appearing, comfortable and no acute distress Orientation: alert and oriented x3 HENMT Ears: hearing grossly normal bilaterally Eyes Visual Abarca: normal visual abarca by confrontation Conjunctivae: conjunctivae normal Sclera: sclerae normal EOM: EOM intact bilaterally Resp Effort & Inspection: normal respiratory effort and able to speak in complete sentences Cardio Rate: regular rate GI Palpation: soft (NT) Extrem General: no pedal edema and no calf tenderness Objective Labs 02/02/25 11:40 02/02/25 07:57 Labs: Laboratory Results - last 24 hr 02/02/25 02/02/25 02/02/25 07:57 08:25 09:48 WBC 7.2 RBC 3.42 L Hgb 10.4 L Hct 30.4 L MCV 88.8 MCH 30.6 MCHC 34.4 RDW 12.8 Plt Count 197 Neut % (Auto) 78.8 H Lymph % (Auto) 14.8 L Hitchcock % (Auto) 5.2 Eos % (Auto) 0.6 L Baso % (Auto) 0.6 Neut # (Auto) 5700 Lymph # (Auto) 1100 Hitchcock # (Auto) 400 Eos # (Auto) 0 Baso # (Auto) 0 PT 47.9 H INR 4.4 H APTT 34 Sodium 140 Potassium 4.0 Chloride 109 H Carbon Dioxide 25 BUN 57 H Creatinine 0.70 Estimated GFR > 60 BUN/Creatinine Ratio 81.4 H Glucose 137 H Lactate 2.3 H 1.9 Calcium 8.3 L Total Bilirubin 0.4 AST 46 ALT 34 Alkaline Phosphatase 59 Total Protein 6.1 L Albumin 3.5 Globulin 2.6 Albumin/Globulin Ratio 1.3 Procalcitonin 0.126 Urine RBC 1-5/hpf Urine WBC None seen Ur Squamous Epith Cells None seen Urine Bacteria None seen Ur Culture Indicated? Cult not indicated Vol Urine Centrifuged 10ml (spun) Chlamy pneumoniae PCR Not detected Adenovirus (PCR) Not detected B. pertussis DNA (PCR) Not detected B.parapertussis DNA PCR Not detected Coronavirus OC43 (PCR) Not detected Coronavirus HKU1 (PCR) Not detected Coronavirus 229E (PCR) Not detected SARS-CoV-2 (PCR) Not detected Coronavirus NL63 (PCR) Not detected Human Metapneumovir PCR Not detected Influenza Type A (PCR) Not detected Influenza Type B (PCR) Not detected M. pneumoniae (PCR) Not detected Parainfluenza 1 (PCR) Not detected Parainfluenza 2 (PCR) Not detected Parainfluenza 3 (PCR) Not detected Parainfluenza 4 (PCR) Not detected RSV (PCR) Not detected Entero/Rhino (PCR) Not detected [facility] Medical History Lower urinary tract symptoms Benign prostatic hyperplasia Persistent microscopic hematuria Secondhand smoke exposure Gross hematuria Osteoarthritis of right knee BCC (basal cell carcinoma), scalp/neck (01/01/14) Basal cell carcinoma (BCC) of left shoulder (10/12/09) Elevated prostate specific antigen (PSA) (02/02/15) Chronic atrial fibrillation (03/28/13) Anticoagulated on warfarin (08/28/12) Essential hypertension Obstructive sleep apnea syndrome Mixed hyperlipidemia Surgical History History of basal cell carcinoma (BCC) excision (10/12/09) Status post Mohs micrographic surgery for basal cell carcinoma (BCC) (01/01/14) History of colonoscopy (05/19/16) S/P UPPP (uvulopalatopharyngoplasty) (1995) History of inguinal hernia repair (1967) Status post appendectomy (1958) Social History household members: spouse Tobacco & Substance Use Smoking Status: Former smoker Assessment & Plan Assessment and plan (1) Acute upper gastrointestinal bleeding: Status: Acute Plan Plan EGD, possible biopsy. Evaluate for esophagitis, PUD, gastritis, hiatal hernia, Alfredo's, H pylori. The risks, benefits and options regarding the procedure were explained to the patient in detail. Risk discussion included but not limited to: bleeding, perforation, aspiration. The patient was encouraged to ask questions and they were answered to their satisfaction. The patient understands and is agreeable to proceed. Time-Based Coding :: [TOTAL MINUTES] spent with patient and on the chart (including review of chart, obtaining history, exam, reviewing outside data, placing orders, documenting exam and treatment plan, and counseling patient) on [DATE]. PROFEE Charge Codes Inpatient or Observation consultation: 74172
--- NOTE | 2025-02-02 10:36 | PC.NURSE ---
occult blood stool POC test done by Dr. Milian. State it is positive
--- NOTE | 2025-02-02 10:46 | PM.HP.IH.1 ---
History of Present Illness History of Present Illness Date Patient Seen: 02/02/25 Time Patient Seen: 10:46 Chief complaint: Low blood pressure, Dizzy, feels hot 1 day Narrative: 79-year-old male well known to me presented to the emergency department with up to a days' worth of feeling lightheaded dizzy with some urinary frequency feeling generally unwell. Did not take his morning medications Says symptoms are similar what he felt with UTIs in the past No upper GI symptoms. He has been somewhat constipated if anything else. No blood in the toilet per patient His ER evaluation demonstrated a new anemia with hemoglobin at 10.4 compared to 14.9 in December. Patient was persistently hypotensive and became somewhat tachycardic repeat hemoglobin done 3-1/2 hours later was 8.2. Chemistries unremarkable INR 4.4 CT scan chest abdomen and pelvis unremarkable except for super enlarged prostate and severe three-vessel coronary artery calcifications. No changes in the stomach itself and moderate ?fecal stasis ?through the colon [facility] Medical History Lower urinary tract symptoms Benign prostatic hyperplasia Persistent microscopic hematuria Secondhand smoke exposure Gross hematuria Osteoarthritis of right knee BCC (basal cell carcinoma), scalp/neck (01/01/14) Basal cell carcinoma (BCC) of left shoulder (10/12/09) Elevated prostate specific antigen (PSA) (02/02/15) Chronic atrial fibrillation (03/28/13) Anticoagulated on warfarin (08/28/12) Essential hypertension Obstructive sleep apnea syndrome Mixed hyperlipidemia Surgical History History of basal cell carcinoma (BCC) excision (10/12/09) Status post Mohs micrographic surgery for basal cell carcinoma (BCC) (01/01/14) History of colonoscopy (05/19/16) S/P UPPP (uvulopalatopharyngoplasty) (1995) History of inguinal hernia repair (1967) Status post appendectomy (1958) Social History household members: spouse Smoking Status: Former smoker alcohol intake: never Meds Home Medications and Allergies Home Medications ?Medication ?Instructions ?Recorded ?Confirmed ?Type Respironics Dreamstation-2 CPAP #1 ea 06/10/21 02/02/25 History Ocusight 1 tab PO BID 07/07/22 02/02/25 History lancets 21 gauge (BD Microtainer #200 ea 02/18/24 02/02/25 Rx Lancet) warfarin 5 mg tablet See Rx Instructions .Route 05/27/24 02/02/25 Rx .COMPLEX #138 tabs prothrombin time test strips #48 ea 06/30/24 02/02/25 Rx (Coaguchek XS strips) diltiazem HCl 120 mg 120 mg PO DAILY #90 caps 12/25/24 02/02/25 Rx capsule,extended release 24 hr (Cardizem CD) hydrochlorothiazide 25 mg tablet 25 mg PO QDAY #90 tabs 12/25/24 02/02/25 Rx tamsulosin 0.4 mg capsule 0.8 mg (2 x 0.4 mg) PO BEDTIME 12/25/24 02/02/25 Rx #180 caps Allergies Allergy/AdvReac Type Severity Reaction Status Date / Time tetracycline (TETRACYCLINE) Allergy Mild RASH Verified 02/02/25 07:48 Kvzvlvi-GYI-SnF Reductase AdvReac Intermediate MYALGIAS Verified 02/02/25 07:48 Inhibitor (AEJZHAG-SLM-DAC REDUCTASE INHIBITOR) Exam Vital Signs (past 8 hours): - 02/02/25 07:42 02/02/25 07:42 02/02/25 07:45 Temperature 97.9 F Pulse Rate 98 H 115 H Respiratory Rate 16 Blood Pressure 123/60 123/60 Pulse Oximetry 96 96 Oxygen Delivery Method Room Air 02/02/25 08:00 02/02/25 08:30 02/02/25 09:00 Temperature Pulse Rate 107 H 96 H 92 H Respiratory Rate 22 10 L 12 Blood Pressure Pulse Oximetry 97 98 99 Oxygen Delivery Method 02/02/25 09:07 02/02/25 09:07 02/02/25 09:10 Temperature Pulse Rate 90 85 Respiratory Rate 17 24 Blood Pressure 99/50 L Pulse Oximetry 98 98 Oxygen Delivery Method 02/02/25 09:10 02/02/25 09:11 02/02/25 09:15 Temperature 98.0 F Pulse Rate 89 Respiratory Rate 15 Blood Pressure 98/55 L Pulse Oximetry 97 Oxygen Delivery Method 02/02/25 09:15 02/02/25 09:30 02/02/25 09:30 Temperature Pulse Rate 94 H Respiratory Rate 20 Blood Pressure 100/56 L 97/56 L Pulse Oximetry 99 Oxygen Delivery Method 02/02/25 09:45 02/02/25 09:45 02/02/25 10:00 Temperature Pulse Rate 92 H 100 H Respiratory Rate 14 27 H Blood Pressure 101/59 L Pulse Oximetry 99 Oxygen Delivery Method 02/02/25 10:10 02/02/25 10:10 02/02/25 10:15 Temperature Pulse Rate 98 H 94 H Respiratory Rate 25 H 20 Blood Pressure 116/66 Pulse Oximetry 98 99 Oxygen Delivery Method 02/02/25 10:15 Temperature Pulse Rate Respiratory Rate Blood Pressure 108/58 L Pulse Oximetry Oxygen Delivery Method Oxygen Delivery Method Room Air Narrative Exam Narrative: Pale looking elderly male in no obvious immediate distress somewhat slow to answer questions versus baseline HEENT-unremarkable Lungs-clear with good breath sounds Heart-irregular and slightly tachycardic no murmur Abdomen-positive bowel tones soft nontender nondistended no organomegaly no rebound or guarding Extremities-no cyanosis clubbing or edema Objective Labs 02/03/25 04:41 02/03/25 04:41 Labs: Laboratory Results - last 24 hr 02/02/25 02/02/25 02/02/25 07:57 08:25 09:48 WBC 7.2 RBC 3.42 L Hgb 10.4 L Hct 30.4 L MCV 88.8 MCH 30.6 MCHC 34.4 RDW 12.8 Plt Count 197 Neut % (Auto) 78.8 H Lymph % (Auto) 14.8 L Collin % (Auto) 5.2 Eos % (Auto) 0.6 L Baso % (Auto) 0.6 Neut # (Auto) 5700 Lymph # (Auto) 1100 Collin # (Auto) 400 Eos # (Auto) 0 Baso # (Auto) 0 PT 47.9 H INR 4.4 H APTT 34 Sodium 140 Potassium 4.0 Chloride 109 H Carbon Dioxide 25 BUN 57 H Creatinine 0.70 Estimated GFR > 60 BUN/Creatinine Ratio 81.4 H Glucose 137 H Lactate 2.3 H 1.9 Calcium 8.3 L Total Bilirubin 0.4 AST 46 ALT 34 Alkaline Phosphatase 59 Total Protein 6.1 L Albumin 3.5 Globulin 2.6 Albumin/Globulin Ratio 1.3 Procalcitonin 0.126 Urine RBC 1-5/hpf Urine WBC None seen Ur Squamous Epith Cells None seen Urine Bacteria None seen Ur Culture Indicated? Cult not indicated Vol Urine Centrifuged 10ml (spun) Chlamy pneumoniae PCR Not detected Adenovirus (PCR) Not detected B. pertussis DNA (PCR) Not detected B.parapertussis DNA PCR Not detected Coronavirus OC43 (PCR) Not detected Coronavirus HKU1 (PCR) Not detected Coronavirus 229E (PCR) Not detected SARS-CoV-2 (PCR) Not detected Coronavirus NL63 (PCR) Not detected Human Metapneumovir PCR Not detected Influenza Type A (PCR) Not detected Influenza Type B (PCR) Not detected M. pneumoniae (PCR) Not detected Parainfluenza 1 (PCR) Not detected Parainfluenza 2 (PCR) Not detected Parainfluenza 3 (PCR) Not detected Parainfluenza 4 (PCR) Not detected RSV (PCR) Not detected Entero/Rhino (PCR) Not detected Assessment & Plan Assessment & Plan narrative: 1. Probable upper GI bleed-will continue on proton pump inhibitor parenterally. Given his modest cardiovascular decompensation he needs his warfarin urgently reversed with Kcentra which was given in the emergency department. We will need to follow up on this. Blood transfusion has been started in the ER will need to monitor his blood counts carefully. He will need more urgent upper endoscopy it seems If no findings on upper endoscopy consider colonoscopy, although based on his findings so far is seem super unlikely this is a lower GI source of bleeding. General surgery has been consulted by the ED physician. Given his unstable status he should be NPO for now. 2. Chronic anticoagulation due to chronic atrial fibrillation-holding warfarin. Uncertain as to when this can be safely restarted. 3. Atrial fibrillation-modestly tachycardic likely due to his ongoing bleeding. Hopefully can reverses with fluid and/or blood product support. If need be would give IV digoxin for rate control trying to avoid hypotension with either beta-gisela or calcium channel gisela. Could give low dose of either parenterally if need be for rate control in an emergent setting. 4. Hypertension-patient chronically on diltiazem for both heart rate control and blood pressure. We will hold diltiazem for now although he did receive a dose after arrival in the emergency department. 5. VTE prophylaxis-SCDs for now. Given the GI bleeding not a candidate for any sort of anticoagulation in fact his warfarin as above has been held 6. Code status-full code in the event of a sudden cardiac or respiratory arrest, per patient request Time-Based Coding :: [TOTAL MINUTES] spent with patient and on the chart (including review of chart, obtaining history, exam, reviewing outside data, placing orders, documenting exam and treatment plan, and counseling patient) on [DATE]. PROFEE Security Director Document charge(s): Yes Charge Codes Initial inpatient/observation care: [id number]
[2025-02-02 11:48] LABS: Hematocrit 24.1 % (41-53); Hemoglobin 8.2 g/dL (13.5-17.5)
[2025-02-02] MEDS: TRANEXAMIC ACID 1,000 MG in SODIUM CHLORIDE 0.9% 100 ML 200 MG IV (12:08)
--- NOTE | 2025-02-02 12:22 | PC.NURSE ---
surgeon in room for assessment
[2025-02-02 12:28] LABS: Prothrombin Time 51.9 SECONDS (9.4-12.5)
[2025-02-02 12:29] LABS: INR 4.8 (0.9-1.3)
[2025-02-02] MEDS: ACETAMINOPHEN IV 1,000 MG/100 ML VIAL 400 MG IV (12:56)
--- NOTE | 2025-02-02 13:24 | CM.DANOTE ---
DCP Assessment Note: Pt is a 79yo male, resident of [place], is admitted for upper GI bleed. Pt lives in a house with his , Tamica. Pt's Primary Care Provider is Dr. Miguel Liao and insurance is [employer]. Reviewed chart and discussed with multidisciplinary team pt's medical status and initial discharge needs. Per ED Provider, pt to obtain blood in the ED and when INR is stable, General Surgery is consulting for a EGD. DCP met w/patient at bedside; introduced self and role with navigating pt admission and discharge needs. Pt and requested to end assessment as they believe they have answered all social questions already with other medical staff; state discharge planning assessment would be invasive. Pt requests that they only speak with Doctors and Nurses, made a comment about Medicare notices provided by Admissions Counselors and requested that they no longer return to the room with any messages. AHMET notified registration staff and pt RN with above. Plan: Anticipating discharge home with spouse to transport when medically cleared. Nancy Nuno CORRECTIONAL SECURITY OFFICER Discharge Planning/Care Management CM Discharge Assessment Start: 02/02/25 12:02 Freq: Status: Active Protocol: Document 02/02/25 13:20 MW (Rec: 02/02/25 13:24 MW [id number]) Discharge Planning Assessment Assigned Discharge AHMET Cruz Hose Mender Provider Dr. Miguel Liao Insurance [facility] DPOA/Assigned Tamica Zuniga, Spouse Designee Name Contact Information [phone] Advance Directives? Yes Has Patient been No admitted in last 30 days? Prior Living House Arrangements Household Members spouse Review Status In Process Please Provide Date 02/02/25 Initial DC Assessment Was Performed Next Review Type Continued Stay Review
[2025-02-02 16:00] LABS: INR 1.4 (0.9-1.3); Prothrombin Time 15.6 SECONDS (9.4-12.5)
[2025-02-02] MEDS: LACTATED RINGERS 1,000 ML 42 ML IV (17:21)
--- NOTE | 2025-02-02 18:14 | EKG_ITS ---
[facility] [address] [place] [address] Test Date: 2025-02-02 Pat Name: Jhonatan Pendleton Department: [facility] Room: 226 Gender: Male Warp Knitter: BELKIS : 1945 Requested By: Order Number: [id number] Reading MD: Miguel Liao MD Measurements Intervals [place] Rate: 106 P: NE: QRS: -11 QRSD: 86 T: -77 QT: 334 QTc: 443 Interpretive Statements Atrial fibrillation with rapid ventricular response with premature ventricular or aberrantly conducted complexes Low voltage QRS Cannot rule out Anterior infarct , age undetermined Electronically Signed On 02-03-2025 6:46:55 PST by Miguel Liao MD
[2025-02-02 19:09] LABS: Hematocrit 28.0 % (41-53); Hemoglobin 9.7 g/dL (13.5-17.5)
[2025-02-02 19:34] LABS: Troponin I 0.016 ng/mL (0.01-0.034)
--- NOTE | 2025-02-02 22:46 | PM.OP.EGD ---
Operative Date/Time/Diagnoses Date of procedure: 02/02/25 Time of procedure: 23:05 Pre-op diagnosis: UGI bleed Post-op diagnosis: other (Large gastric ulcer) Procedure & Clinicians Study performed: EGD with biopsy Same procedure(s) as scheduled: Yes Indications: 79yo M with UGI bleeding, melena Surgeon: Qamar Vazquez Anesthesia Type: MAC +/- Procedure Notes SCOAP/Timeout: Performed Procedure in detail: EGD Informed consent was obtained. The procedure, its risks, benefits, and alternatives were discussed. Patient understood and agreed to proceed. The patient was placed in the left lateral decubitus position with head elevated. Sedation given per anesthesia. The video endoscope was inserted into the oropharynx and guided under direct vision into the esophagus, stomach, and duodenum which were carefully examined. The scope was retroflexed to examine the hiatus and gastroesophageal junction. Antral biopsies were obtained for Helicobacter pylori. The patient tolerated the procedure very well. There were no apparent complications. Significant EGD findings: Z-line noted at: 45cm Large, 3cm gastric ulcer at incisura, not actively bleeding, biopsied Widely patent pylorus Normal duodenum, no ulcer Normal esophagus, no ulcer Mild antral gastritis, biopsied Findings: gastric ulcer Specimen(s): other (biopsies) Estimated Blood Loss: 5 Complications: none Impression: Large gastric ulcer at incisura angularis, likely source of UGI bleeding Post-procedure Recommendations: EDG in 6-8 weeks and Will call with biopsy results Plan for aftercare: PACU then floor Follow up: as needed Disposition: PACU
[2025-02-02] MEDS: SODIUM CHLORIDE 0.9% 1,000 ML 100 ML IV (23:50)
[2025-02-02] MEDS: SODIUM CHLORIDE 0.9% FLUSH 10 ML IV (23:51)
[2025-02-02] MEDS: PANTOPRAZOLE 40 MG VIAL IV (23:51)
[2025-02-02] MEDS: TAMSULOSIN 0.4 MG CAPSULE 0.8 MG PO (23:52)
[2025-02-03] VITALS (11 sets, daily range): BP systolic 117–163; BP diastolic 59–88; PULSE 81–117; RESP 16–33; TEMP 36.7–37.2; O2SAT 95–98
[2025-02-03] MEDS: SUCRALFATE 1 GM/10 ML ORAL SUSP PO ×4 (00:12→17:58)
[2025-02-03 05:42] LABS: Hematocrit 26.3 % (41-53); Hemoglobin 8.9 g/dL (13.5-17.5)
[2025-02-03 05:52] LABS: INR 2.3 (0.9-1.3); Prothrombin Time 25.8 SECONDS (9.4-12.5)
[2025-02-03 05:56] LABS: Alanine Aminotransferase 28 IU/L (<50); Albumin 3.1 g/dL (3.5-5.0); Albumin Globulin Ratio 1.3 (1.0-2.8); Alkaline Phosphatase 54 U/L (38-126); Blood Urea Nitrogen 39 mg/dL (9-20); Calcium 8.0 mg/dL (8.4-10.2); Carbon Dioxide 25 mmol/L (22-32); Chloride 114 mmol/L (98-107); Estimated Glomerular Filt Rate > 60 mL/min (>60); Globulin 2.4 g/dL (1.7-4.1); Glucose 113 mg/dL (70-99); HEMOLYSIS < 15 (0-50); Potassium 3.4 mmol/L (3.4-5.1); Sodium 144 mmol/L (137-145); Total Protein 5.5 g/dL (6.3-8.2)
--- NOTE | 2025-02-03 06:21 | P.PN_ITS ---
Subjective Subjective Date Patient Seen: 02/03/25 Time Patient Seen: 06:21 Interval history: Stable overnight No clinical bleeding Melena continues as expected Tolerated clears HGB 8.9 this morning Exam Vital Signs (past 8 hours): - 02/02/25 23:11 02/02/25 23:16 02/02/25 23:22 Temperature 98.9 F 97.9 F Pulse Rate 109 H 110 H 103 H Respiratory Rate 22 25 H 16 Blood Pressure 107/57 L 104/54 L 112/56 L Pulse Oximetry 96 98 97 Oxygen Delivery Method Room Air Room Air Room Air Oxygen Flow Rate 02/03/25 00:00 02/03/25 02:47 02/03/25 04:00 Temperature 98.3 F Pulse Rate 108 H 95 H Respiratory Rate 18 Blood Pressure 146/75 H 131/62 Pulse Oximetry 98 95 Oxygen Delivery Method CPAP Oxygen Flow Rate 0 0 Oxygen Delivery Method CPAP Oxygen Flow Rate 0 GI Other: ABD: soft, non-peritoneal exam Objective Labs 02/03/25 04:41 02/03/25 04:41 Labs: Laboratory Results - last 24 hr 02/02/25 02/02/25 02/02/25 07:57 08:25 09:48 WBC 7.2 RBC 3.42 L Hgb 10.4 L Hct 30.4 L MCV 88.8 MCH 30.6 MCHC 34.4 RDW 12.8 Plt Count 197 Neut % (Auto) 78.8 H Lymph % (Auto) 14.8 L [place] % (Auto) 5.2 Eos % (Auto) 0.6 L Baso % (Auto) 0.6 Neut # (Auto) 5700 Lymph # (Auto) 1100 [place] # (Auto) 400 Eos # (Auto) 0 Baso # (Auto) 0 PT 47.9 H INR 4.4 H APTT 34 Sodium 140 Potassium 4.0 Chloride 109 H Carbon Dioxide 25 BUN 57 H Creatinine 0.70 Estimated GFR > 60 BUN/Creatinine Ratio 81.4 H Glucose 137 H POC Whole Bld Glucose Lactate 2.3 H 1.9 Calcium 8.3 L Total Bilirubin 0.4 AST 46 ALT 34 Alkaline Phosphatase 59 Troponin I Total Protein 6.1 L Albumin 3.5 Globulin 2.6 Albumin/Globulin Ratio 1.3 Procalcitonin 0.126 Urine RBC 1-5/hpf Urine WBC None seen Ur Squamous Epith Cells None seen Urine Bacteria None seen Ur Culture Indicated? Cult not indicated Vol Urine Centrifuged 10ml (spun) Chlamy pneumoniae PCR Not detected Adenovirus (PCR) Not detected B. pertussis DNA (PCR) Not detected B.parapertussis DNA PCR Not detected Coronavirus OC43 (PCR) Not detected Coronavirus HKU1 (PCR) Not detected Coronavirus 229E (PCR) Not detected SARS-CoV-2 (PCR) Not detected Coronavirus NL63 (PCR) Not detected Human Metapneumovir PCR Not detected Influenza Type A (PCR) Not detected Influenza Type B (PCR) Not detected M. pneumoniae (PCR) Not detected Parainfluenza 1 (PCR) Not detected Parainfluenza 2 (PCR) Not detected Parainfluenza 3 (PCR) Not detected Parainfluenza 4 (PCR) Not detected RSV (PCR) Not detected Entero/Rhino (PCR) Not detected Blood Type Antibody Screen Crossmatch 02/02/25 02/02/25 02/02/25 10:24 11:40 11:54 WBC RBC Hgb 8.2 L Hct 24.1 L MCV MCH MCHC RDW Plt Count Neut % (Auto) Lymph % (Auto) [place] % (Auto) Eos % (Auto) Baso % (Auto) Neut # (Auto) Lymph # (Auto) [place] # (Auto) Eos # (Auto) Baso # (Auto) PT 51.9 H INR 4.8 H* APTT Sodium Potassium Chloride Carbon Dioxide BUN Creatinine Estimated GFR BUN/Creatinine Ratio Glucose POC Whole Bld Glucose Lactate Calcium Total Bilirubin AST ALT Alkaline Phosphatase Troponin I Total Protein Albumin Globulin Albumin/Globulin Ratio Procalcitonin Urine RBC Urine WBC Ur Squamous Epith Cells Urine Bacteria Ur Culture Indicated? Vol Urine Centrifuged Chlamy pneumoniae PCR Adenovirus (PCR) B. pertussis DNA (PCR) B.parapertussis DNA PCR Coronavirus OC43 (PCR) Coronavirus HKU1 (PCR) Coronavirus 229E (PCR) SARS-CoV-2 (PCR) Coronavirus NL63 (PCR) Human Metapneumovir PCR Influenza Type A (PCR) Influenza Type B (PCR) M. pneumoniae (PCR) Parainfluenza 1 (PCR) Parainfluenza 2 (PCR) Parainfluenza 3 (PCR) Parainfluenza 4 (PCR) RSV (PCR) Entero/Rhino (PCR) Blood Type O Positive Antibody Screen Negative Crossmatch See Detail 02/02/25 02/02/25 02/02/25 15:44 18:55 21:37 WBC RBC Hgb 9.7 L Hct 28.0 L MCV MCH MCHC RDW Plt Count Neut % (Auto) Lymph % (Auto) [place] % (Auto) Eos % (Auto) Baso % (Auto) Neut # (Auto) Lymph # (Auto) [place] # (Auto) Eos # (Auto) Baso # (Auto) PT 15.6 H D INR 1.4 H APTT Sodium Potassium Chloride Carbon Dioxide BUN Creatinine Estimated GFR BUN/Creatinine Ratio Glucose POC Whole Bld Glucose 122 H Lactate Calcium Total Bilirubin AST ALT Alkaline Phosphatase Troponin I 0.016 Total Protein Albumin Globulin Albumin/Globulin Ratio Procalcitonin Urine RBC Urine WBC Ur Squamous Epith Cells Urine Bacteria Ur Culture Indicated? Vol Urine Centrifuged Chlamy pneumoniae PCR Adenovirus (PCR) B. pertussis DNA (PCR) B.parapertussis DNA PCR Coronavirus OC43 (PCR) Coronavirus HKU1 (PCR) Coronavirus 229E (PCR) SARS-CoV-2 (PCR) Coronavirus NL63 (PCR) Human Metapneumovir PCR Influenza Type A (PCR) Influenza Type B (PCR) M. pneumoniae (PCR) Parainfluenza 1 (PCR) Parainfluenza 2 (PCR) Parainfluenza 3 (PCR) Parainfluenza 4 (PCR) RSV (PCR) Entero/Rhino (PCR) Blood Type Antibody Screen Crossmatch 02/03/25 04:41 WBC RBC Hgb 8.9 L Hct 26.3 L MCV MCH MCHC RDW Plt Count Neut % (Auto) Lymph % (Auto) [place] % (Auto) Eos % (Auto) Baso % (Auto) Neut # (Auto) Lymph # (Auto) [place] # (Auto) Eos # (Auto) Baso # (Auto) PT 25.8 H D INR 2.3 H APTT Sodium 144 Potassium 3.4 Chloride 114 H Carbon Dioxide 25 BUN 39 H Creatinine 0.66 Estimated GFR > 60 BUN/Creatinine Ratio 59.1 H Glucose 113 H POC Whole Bld Glucose Lactate Calcium 8.0 L Total Bilirubin 0.4 AST 32 ALT 28 Alkaline Phosphatase 54 Troponin I Total Protein 5.5 L Albumin 3.1 L Globulin 2.4 Albumin/Globulin Ratio 1.3 Procalcitonin Urine RBC Urine WBC Ur Squamous Epith Cells Urine Bacteria Ur Culture Indicated? Vol Urine Centrifuged Chlamy pneumoniae PCR Adenovirus (PCR) B. pertussis DNA (PCR) B.parapertussis DNA PCR Coronavirus OC43 (PCR) Coronavirus HKU1 (PCR) Coronavirus 229E (PCR) SARS-CoV-2 (PCR) Coronavirus NL63 (PCR) Human Metapneumovir PCR Influenza Type A (PCR) Influenza Type B (PCR) M. pneumoniae (PCR) Parainfluenza 1 (PCR) Parainfluenza 2 (PCR) Parainfluenza 3 (PCR) Parainfluenza 4 (PCR) RSV (PCR) Entero/Rhino (PCR) Blood Type Antibody Screen Crossmatch [facility] Medical History Lower urinary tract symptoms Benign prostatic hyperplasia Persistent microscopic hematuria Secondhand smoke exposure Gross hematuria Osteoarthritis of right knee BCC (basal cell carcinoma), scalp/neck (01/01/14) Basal cell carcinoma (BCC) of left shoulder (10/12/09) Elevated prostate specific antigen (PSA) (02/02/15) Chronic atrial fibrillation (03/28/13) Anticoagulated on warfarin (08/28/12) Essential hypertension Obstructive sleep apnea syndrome Mixed hyperlipidemia Surgical History History of basal cell carcinoma (BCC) excision (10/12/09) Status post Mohs micrographic surgery for basal cell carcinoma (BCC) (01/01/14) History of colonoscopy (05/19/16) S/P UPPP (uvulopalatopharyngoplasty) (1995) History of inguinal hernia repair (1967) Status post appendectomy (1958) Social History household members: spouse Smoking Status: Former smoker alcohol intake: never Assessment & Plan Assessment and plan (1) Gastric ulcer: Qualifiers: Gastric ulcer chronicity: acute Gastric ulcer complication status: with hemorrhage Qualified Code(s): K25.0 - Acute gastric ulcer with hemorrhage Status: Acute (2) Acute upper gastrointestinal bleeding: Status: Acute Plan Advance diet as tolerated Continue BID PPI, carafate Biopsies pending of large gastric ulcer at incisura angularis and for H pylori No active bleeding at time of endoscopy He will need repeat scope in 8 weeks to document healing Ulcer precautions: Avoid NSAIDs, EtOH, smoking OK for discharge from surgical perspective Time-Based Coding :: [TOTAL MINUTES] spent with patient and on the chart (including review of chart, obtaining history, exam, reviewing outside data, placing orders, documenting exam and treatment plan, and counseling patient) on [DATE]. Quality VTE Deep Vein Thrombosis/Pulmonary Embolism Present on Admission: No IH PROFEE Assistant [employer] Coach Document charge(s): Yes Charge Codes Subsequent inpatient/observation care: [id number]
--- NOTE | 2025-02-03 06:35 | PC.NURSE ---
night guard RN note pt AA&ox4, forgetful at times, pt states he is irritated because procedure was delayed, pt taken back down to OR at 2200, returned to floor prior to midnight, denies pain, MD ordered clear fluid diet, pt did not agree with the order stating the doctor told me before the procedure that I could eat whatever I wanted afterwards!, pt shown the diet order in computer with specifications of no carbonated drinks and that diet is to advance when tolerated in AM, VSS, afebrile, Afib 80s at rest, HR increased to 120-140s with activity, pt up frequently to void and have BMs on bedside commode, BMs are dark brown/black in color and formed, Dr. Vazquez aware and states that it is expected, home CPAP used overnight, O2 sats >92%, IV fluids and meds as ordered, call galarza within reach, pt reminded to call for assistance before getting up, declined use of manager custom socks, care ongoing
--- NOTE | 2025-02-03 06:53 | P.PN_ITS ---
Subjective Subjective Date Patient Seen: 02/03/25 Time Patient Seen: 06:53 Interval history: Patient now demonstrating some increased hemodynamic stability with blood pressures Bactrim more normal range. Heart rate also improved 90-110 with atrial fibrillation EGD yesterday demonstrate a large gastric ulcer without evidence of active bleeding. Biopsies were obtained. Plan is to continue on PPI plus sucralfate with repeat endoscopy in 6-8 weeks This morning blood counts have dropped a bit as well, with hemoglobin 8.9 hematocrit 26.3. INR also at 2.3. Chemistries unremarkable This morning in-person patient looks like he feels much better. He has more color to him if you will. He has no complaints Exam Vital Signs (past 8 hours): - 02/02/25 23:11 02/02/25 23:16 02/02/25 23:22 Temperature 98.9 F 97.9 F Pulse Rate 109 H 110 H 103 H Respiratory Rate 22 25 H 16 Blood Pressure 107/57 L 104/54 L 112/56 L Pulse Oximetry 96 98 97 Oxygen Delivery Method Room Air Room Air Room Air Oxygen Flow Rate 02/03/25 00:00 02/03/25 02:47 02/03/25 04:00 Temperature 98.3 F Pulse Rate 108 H 95 H Respiratory Rate 18 Blood Pressure 146/75 H 131/62 Pulse Oximetry 98 95 Oxygen Delivery Method CPAP Oxygen Flow Rate 0 0 Oxygen Delivery Method CPAP Oxygen Flow Rate 0 Objective Labs 02/03/25 04:41 02/03/25 04:41 Labs: Laboratory Results - last 24 hr 02/02/25 02/02/25 02/02/25 07:57 08:25 09:48 WBC 7.2 RBC 3.42 L Hgb 10.4 L Hct 30.4 L MCV 88.8 MCH 30.6 MCHC 34.4 RDW 12.8 Plt Count 197 Neut % (Auto) 78.8 H Lymph % (Auto) 14.8 L [place] % (Auto) 5.2 Eos % (Auto) 0.6 L Baso % (Auto) 0.6 Neut # (Auto) 5700 Lymph # (Auto) 1100 [place] # (Auto) 400 Eos # (Auto) 0 Baso # (Auto) 0 PT 47.9 H INR 4.4 H APTT 34 Sodium 140 Potassium 4.0 Chloride 109 H Carbon Dioxide 25 BUN 57 H Creatinine 0.70 Estimated GFR > 60 BUN/Creatinine Ratio 81.4 H Glucose 137 H POC Whole Bld Glucose Lactate 2.3 H 1.9 Calcium 8.3 L Total Bilirubin 0.4 AST 46 ALT 34 Alkaline Phosphatase 59 Troponin I Total Protein 6.1 L Albumin 3.5 Globulin 2.6 Albumin/Globulin Ratio 1.3 Procalcitonin 0.126 Urine RBC 1-5/hpf Urine WBC None seen Ur Squamous Epith Cells None seen Urine Bacteria None seen Ur Culture Indicated? Cult not indicated Vol Urine Centrifuged 10ml (spun) Chlamy pneumoniae PCR Not detected Adenovirus (PCR) Not detected B. pertussis DNA (PCR) Not detected B.parapertussis DNA PCR Not detected Coronavirus OC43 (PCR) Not detected Coronavirus HKU1 (PCR) Not detected Coronavirus 229E (PCR) Not detected SARS-CoV-2 (PCR) Not detected Coronavirus NL63 (PCR) Not detected Human Metapneumovir PCR Not detected Influenza Type A (PCR) Not detected Influenza Type B (PCR) Not detected M. pneumoniae (PCR) Not detected Parainfluenza 1 (PCR) Not detected Parainfluenza 2 (PCR) Not detected Parainfluenza 3 (PCR) Not detected Parainfluenza 4 (PCR) Not detected RSV (PCR) Not detected Entero/Rhino (PCR) Not detected Blood Type Antibody Screen Crossmatch 02/02/25 02/02/25 02/02/25 10:24 11:40 11:54 WBC RBC Hgb 8.2 L Hct 24.1 L MCV MCH MCHC RDW Plt Count Neut % (Auto) Lymph % (Auto) [place] % (Auto) Eos % (Auto) Baso % (Auto) Neut # (Auto) Lymph # (Auto) [place] # (Auto) Eos # (Auto) Baso # (Auto) PT 51.9 H INR 4.8 H* APTT Sodium Potassium Chloride Carbon Dioxide BUN Creatinine Estimated GFR BUN/Creatinine Ratio Glucose POC Whole Bld Glucose Lactate Calcium Total Bilirubin AST ALT Alkaline Phosphatase Troponin I Total Protein Albumin Globulin Albumin/Globulin Ratio Procalcitonin Urine RBC Urine WBC Ur Squamous Epith Cells Urine Bacteria Ur Culture Indicated? Vol Urine Centrifuged Chlamy pneumoniae PCR Adenovirus (PCR) B. pertussis DNA (PCR) B.parapertussis DNA PCR Coronavirus OC43 (PCR) Coronavirus HKU1 (PCR) Coronavirus 229E (PCR) SARS-CoV-2 (PCR) Coronavirus NL63 (PCR) Human Metapneumovir PCR Influenza Type A (PCR) Influenza Type B (PCR) M. pneumoniae (PCR) Parainfluenza 1 (PCR) Parainfluenza 2 (PCR) Parainfluenza 3 (PCR) Parainfluenza 4 (PCR) RSV (PCR) Entero/Rhino (PCR) Blood Type O Positive Antibody Screen Negative Crossmatch See Detail 02/02/25 02/02/25 02/02/25 15:44 18:55 21:37 WBC RBC Hgb 9.7 L Hct 28.0 L MCV MCH MCHC RDW Plt Count Neut % (Auto) Lymph % (Auto) [place] % (Auto) Eos % (Auto) Baso % (Auto) Neut # (Auto) Lymph # (Auto) [place] # (Auto) Eos # (Auto) Baso # (Auto) PT 15.6 H D INR 1.4 H APTT Sodium Potassium Chloride Carbon Dioxide BUN Creatinine Estimated GFR BUN/Creatinine Ratio Glucose POC Whole Bld Glucose 122 H Lactate Calcium Total Bilirubin AST ALT Alkaline Phosphatase Troponin I 0.016 Total Protein Albumin Globulin Albumin/Globulin Ratio Procalcitonin Urine RBC Urine WBC Ur Squamous Epith Cells Urine Bacteria Ur Culture Indicated? Vol Urine Centrifuged Chlamy pneumoniae PCR Adenovirus (PCR) B. pertussis DNA (PCR) B.parapertussis DNA PCR Coronavirus OC43 (PCR) Coronavirus HKU1 (PCR) Coronavirus 229E (PCR) SARS-CoV-2 (PCR) Coronavirus NL63 (PCR) Human Metapneumovir PCR Influenza Type A (PCR) Influenza Type B (PCR) M. pneumoniae (PCR) Parainfluenza 1 (PCR) Parainfluenza 2 (PCR) Parainfluenza 3 (PCR) Parainfluenza 4 (PCR) RSV (PCR) Entero/Rhino (PCR) Blood Type Antibody Screen Crossmatch 02/03/25 04:41 WBC RBC Hgb 8.9 L Hct 26.3 L MCV MCH MCHC RDW Plt Count Neut % (Auto) Lymph % (Auto) [place] % (Auto) Eos % (Auto) Baso % (Auto) Neut # (Auto) Lymph # (Auto) [place] # (Auto) Eos # (Auto) Baso # (Auto) PT 25.8 H D INR 2.3 H APTT Sodium 144 Potassium 3.4 Chloride 114 H Carbon Dioxide 25 BUN 39 H Creatinine 0.66 Estimated GFR > 60 BUN/Creatinine Ratio 59.1 H Glucose 113 H POC Whole Bld Glucose Lactate Calcium 8.0 L Total Bilirubin 0.4 AST 32 ALT 28 Alkaline Phosphatase 54 Troponin I Total Protein 5.5 L Albumin 3.1 L Globulin 2.4 Albumin/Globulin Ratio 1.3 Procalcitonin Urine RBC Urine WBC Ur Squamous Epith Cells Urine Bacteria Ur Culture Indicated? Vol Urine Centrifuged Chlamy pneumoniae PCR Adenovirus (PCR) B. pertussis DNA (PCR) B.parapertussis DNA PCR Coronavirus OC43 (PCR) Coronavirus HKU1 (PCR) Coronavirus 229E (PCR) SARS-CoV-2 (PCR) Coronavirus NL63 (PCR) Human Metapneumovir PCR Influenza Type A (PCR) Influenza Type B (PCR) M. pneumoniae (PCR) Parainfluenza 1 (PCR) Parainfluenza 2 (PCR) Parainfluenza 3 (PCR) Parainfluenza 4 (PCR) RSV (PCR) Entero/Rhino (PCR) Blood Type Antibody Screen Crossmatch [facility] Medical History Lower urinary tract symptoms Benign prostatic hyperplasia Persistent microscopic hematuria Secondhand smoke exposure Gross hematuria Osteoarthritis of right knee BCC (basal cell carcinoma), scalp/neck (01/01/14) Basal cell carcinoma (BCC) of left shoulder (10/12/09) Elevated prostate specific antigen (PSA) (02/02/15) Chronic atrial fibrillation (03/28/13) Anticoagulated on warfarin (08/28/12) Essential hypertension Obstructive sleep apnea syndrome Mixed hyperlipidemia Surgical History History of basal cell carcinoma (BCC) excision (10/12/09) Status post Mohs micrographic surgery for basal cell carcinoma (BCC) (01/01/14) History of colonoscopy (05/19/16) S/P UPPP (uvulopalatopharyngoplasty) (1995) History of inguinal hernia repair (1967) Status post appendectomy (1958) Social History household members: spouse Smoking Status: Former smoker alcohol intake: never Assessment & Plan Assessment & Plan narrative: 1. Upper GI bleed secondary to gastric ulcer-agree with proton pump inhibitor plus sucralfate with plans for repeat endoscopy in the future. Await biopsies for Helicobacter or other cause of ulcer. I think given that his INR is still 2.3 I would prefer to have his hemoglobin and hematocrit higher so will transfuse additional 2 units of packed red cells today. We will not plan on giving any additional reversing agents for his warfarin. Would keep him off his warfarin for probably several weeks to allow for healing without bleeding Diet has already been advanced by Dr. Vazquez. No reason to make any changes in diet for now 2. AFib-okay to continue diltiazem for rate control and blood pressure control. Remains off warfarin for now and until there is evidence of more stability and/or healing of his ulcer 3. BPH with LUTS-continue with tamsulosin Time-Based Coding :: [TOTAL MINUTES] spent with patient and on the chart (including review of chart, obtaining history, exam, reviewing outside data, placing orders, documenting exam and treatment plan, and counseling patient) on [DATE]. Quality VTE Deep Vein Thrombosis/Pulmonary Embolism Present on Admission: No PROFEE T[employer] Winder Document charge(s): Yes Charge Codes Subsequent inpatient/observation care: [id number]
--- NOTE | 2025-02-03 08:52 | SUR.HOLD ---
1830 - pt going back to ICU for observation - surgical procedure delayed will bring patient back when procdure will be completed - [id number] pt was originally brought back down - pt stable, alert and orientated throughout holding, explained to pt his procedure will be delayed
[2025-02-03] MEDS: VIT C/E/ZN/COPPR/LUTEIN/ZEAXAN CAPSULE 1 CAP PO ×2 (09:27→19:59)
[2025-02-03] MEDS: PANTOPRAZOLE 40 MG VIAL IV ×2 (09:35→19:59)
[2025-02-03] MEDS: SODIUM CHLORIDE 0.9% 1,000 ML 100 ML IV ×2 (09:35→19:59)
[2025-02-03] MEDS: SODIUM CHLORIDE 0.9% FLUSH 10 ML IV ×2 (09:35→19:59)
--- NOTE | 2025-02-03 11:51 | CM.DPNOTE ---
DCP note DETAIL SUPERVISOR reviewed EMR per Yanni note, getting 2 units of blood today. per George note, stable to dc from surgical perspective. advance diet as tolerated. per RN no anticipated DCP needs. spouse at bedside. did not meet with pt due to previous request that only RNs or doctors meet with pt. see previous CM note for more P: dc home when medically stable with OP f/u. spouse support. no identified barriers to safe dc home. will continue to follow as needed AHMET Campos
[2025-02-03] MEDS: POTASSIUM CHLORIDE 20 MEQ TAB 40 MEQ PO (12:44)
[2025-02-03 15:05] LABS: Hematocrit 28.2 % (41-53); Hemoglobin 9.7 g/dL (13.5-17.5)
[2025-02-03] MEDS: TAMSULOSIN 0.4 MG CAPSULE 0.8 MG PO (19:59)
[2025-02-04] VITALS: BP 143/80; PULSE 107; RESP 18; O2SAT 96
[2025-02-04 01:04] LABS: Appearance Urine UA CLEAR; Bilirubin Urine UA NEGATIVE (NEGATIVE); Color Urine UA YELLOW; Glucose Urine UA NEGATIVE (Negative); Ketones Urine UA NEGATIVE (NEGATIVE); Leukocyte Esterase Urine UA NEGATIVE (NEGATIVE); Nitrite Urine UA NEGATIVE (Negative); Occult Blood Urine UA TRACE-INTACT (Negative); Protein Urine UA NEGATIVE (Negative); Specific Gravity Urine UA 1.020 (1.000-1.035); Urobilinogen Urine UA 0.2 E.U./dL (0.2); pH Urine UA 6.0 (4.5-8.0)
[2025-02-04 01:40] LABS: Culture Indicated Urine Cult Not Indicated
[2025-02-04 04:00] VITALS: BP 147/81; PULSE 120; RESP 22; O2SAT 98
[2025-02-04 05:17] LABS: Hematocrit 28.2 % (41-53); Hemoglobin 9.8 g/dL (13.5-17.5)
[2025-02-04 05:32] LABS: Blood Urea Nitrogen 23 mg/dL (9-20); Calcium 8.2 mg/dL (8.4-10.2); Carbon Dioxide 30 mmol/L (22-32); Chloride 111 mmol/L (98-107); Estimated Glomerular Filt Rate > 60 mL/min (>60); Glucose 123 mg/dL (70-99); HEMOLYSIS < 15 (0-50); Potassium 2.9 mmol/L (3.4-5.1); Sodium 144 mmol/L (137-145)
[2025-02-04] MEDS: SUCRALFATE 1 GM/10 ML ORAL SUSP PO (06:27)
--- NOTE | 2025-02-04 06:33 | PC.NURSE ---
manager night RN note pt A&Ox3, forgetful at times, restless overnight, up frequently to void small amts of urine each time in urinal at bedside, UA collected and sent due to pt's frustration and concern with frequency of voiding, pt taking adequate PO, IV fluids stopped, VSS, afib 80-90s, 120s when up to void, small dark formed stool, denied pain, bed alarm on, meds and labs as ordered, encouraged to call before getting out of bed on own, care ongoing
--- NOTE | 2025-02-04 07:10 | PM.PN.IH.1 ---
Subjective Subjective Date Patient Seen: 02/04/25 Time Patient Seen: 07:10 Interval history: Tolerating regular diet Hemodynamically stable Exam Vital Signs (past 8 hours): - 02/04/25 00:00 02/04/25 04:00 Pulse Rate 107 H 120 H Respiratory Rate 18 22 Blood Pressure 143/80 H 147/81 H Pulse Oximetry 96 98 Oxygen Flow Rate 0 Oxygen Delivery Method Room Air,CPAP Oxygen Flow Rate 0 GI Other: ABD: soft, NTND Objective Labs 02/04/25 04:28 02/04/25 04:28 Labs: Laboratory Results - last 24 hr 02/02/25 02/03/25 02/04/25 10:24 14:55 00:50 Hgb 9.7 L Hct 28.2 L Sodium Potassium Chloride Carbon Dioxide BUN Creatinine Estimated GFR BUN/Creatinine Ratio Glucose Calcium Urine Color Yellow Urine Appearance Clear Urine pH 6.0 Ur Specific [place] 1.020 Urine Protein Negative Urine Glucose (UA) Negative Urine Ketones Negative Urine Occult Blood Trace-intact Urine Nitrate Negative Urine Bilirubin Negative Urine Urobilinogen 0.2 Ur Leukocyte Esterase Negative Urine RBC None seen Urine WBC None seen Ur Squamous Epith Cells None seen Urine Bacteria None seen Ur Culture Indicated? Cult not indicated Vol Urine Centrifuged 10ml (spun) Blood Type O Positive Antibody Screen Negative Crossmatch See Detail 02/04/25 04:28 Hgb 9.8 L Hct 28.2 L Sodium 144 Potassium 2.9 L Chloride 111 H Carbon Dioxide 30 BUN 23 H Creatinine 0.57 L Estimated GFR > 60 BUN/Creatinine Ratio 40.4 H Glucose 123 H Calcium 8.2 L Urine Color Urine Appearance Urine pH Ur Specific [place] Urine Protein Urine Glucose (UA) Urine Ketones Urine Occult Blood Urine Nitrate Urine Bilirubin Urine Urobilinogen Ur Leukocyte Esterase Urine RBC Urine WBC Ur Squamous Epith Cells Urine Bacteria Ur Culture Indicated? Vol Urine Centrifuged Blood Type Antibody Screen Crossmatch [facility] Medical History Lower urinary tract symptoms Benign prostatic hyperplasia Persistent microscopic hematuria Secondhand smoke exposure Gross hematuria Osteoarthritis of right knee BCC (basal cell carcinoma), scalp/neck (01/01/14) Basal cell carcinoma (BCC) of left shoulder (10/12/09) Elevated prostate specific antigen (PSA) (02/02/15) Chronic atrial fibrillation (03/28/13) Anticoagulated on warfarin (08/28/12) Essential hypertension Obstructive sleep apnea syndrome Mixed hyperlipidemia Surgical History History of basal cell carcinoma (BCC) excision (10/12/09) Status post Mohs micrographic surgery for basal cell carcinoma (BCC) (01/01/14) History of colonoscopy (05/19/16) S/P UPPP (uvulopalatopharyngoplasty) (1995) History of inguinal hernia repair (1967) Status post appendectomy (1958) Social History household members: spouse Smoking Status: Former smoker alcohol intake: never Assessment & Plan Assessment and plan (1) Gastric ulcer: Qualifiers: Gastric ulcer chronicity: acute Gastric ulcer complication status: with hemorrhage Qualified Code(s): K25.0 - Acute gastric ulcer with hemorrhage Status: Acute (2) Acute upper gastrointestinal bleeding: Status: Acute Plan GI bleed secondary to gastric ulcer/thinners Hgb 9.8 this morning Tolerating regular diet Plan to continue PPI/Carafate, repeat EGD 6-8 weeks to document healing Biopsies pending of ulcer and H pylori testing Time-Based Coding :: [TOTAL MINUTES] spent with patient and on the chart (including review of chart, obtaining history, exam, reviewing outside data, placing orders, documenting exam and treatment plan, and counseling patient) on [DATE]. Quality VTE Deep Vein Thrombosis/Pulmonary Embolism Present on Admission: No IH PROFEE [employer] Document charge(s): Yes Charge Codes Subsequent inpatient/observation care: [id number]
[2025-02-04 07:23] VITALS: BP 119/61; PULSE 89; RESP 16; TEMP 36.1; O2SAT 97
--- NOTE | 2025-02-04 07:35 | P.DS_ITS ---
History of Present Illness History of Present Illness Date Patient Seen: 02/04/25 Time Patient Seen: 07:35 Chief complaint: Low blood pressure, Dizzy, feels hot 1 day Narrative: 79-year-old male well known to me presented to the emergency department with up to a days' worth of feeling lightheaded dizzy with some urinary frequency feeling generally unwell. Did not take his morning medications Says symptoms are similar what he felt with UTIs in the past No upper GI symptoms. He has been somewhat constipated if anything else. No blood in the toilet per patient His ER evaluation demonstrated a new anemia with hemoglobin at 10.4 compared to 14.9 in December. Patient was persistently hypotensive and became somewhat tachycardic repeat hemoglobin done 3-1/2 hours later was 8.2. Chemistries unremarkable INR 4.4 CT scan chest abdomen and pelvis unremarkable except for super enlarged prostate and severe three-vessel coronary artery calcifications. No changes in the stomach itself and moderate ?fecal stasis ?through the colon Discharge Providers Provider Date of admission: 02/02/25 10:40 Discharge Date: 02/04/25 Primary care physician: Miguel Liao MD Consults: 02/02/25 13:50 Consult to General Surgery Routine Comment: Consulting Provider: Qamar Vazquez Reason for consultation: GI Bleed Has provider been notified: Yes Discharge provider: Miguel Liao MD Summary Hospital Course Discharge Diagnosis: 1. Upper GI bleed 2. Gastric ulcer 3. 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 Chronic atrial fibrillation 5. Hypertension 6. BPH with lower urinary tract symptoms 7. Obstructive sleep apnea Hospital Course: As above patient was admitted with evidence of an upper GI bleed with melena and Hemoccult-positive stool as well as dropping hemoglobin and hematocrit and hypotension. Patient was admitted to the intensive care unit Patient was stabilized with IV fluids, followed by packed red blood cells. He also received Kcentra to reverse his coagulopathy due to warfarin he takes for his chronic atrial fibrillation. With these maneuvers patient hemodynamically stabilized General surgery was consulted by the emergency department and patient underwent upper endoscopy in the evening of his day of admission once he was hemodynamically stable. He was demonstrated to have a large gastric ulcer without evidence of active bleeding and felt to be relatively low risk for rebleeding Patient received additional packed red blood cells as his numbers fluctuated with the Quill abrasion following his resuscitative efforts as above. This showed no further evidence of bleeding. Patient had continued melena as expected Patient was started on proton pump inhibitor upon admission and sucralfate was added Patient will remain off warfarin indefinitely, with plans to resume it however down the road once his ulcer has healed Patient will need repeat EGD to demonstrate healing prior probably to resumption of warfarin Patient will continue on b.i.d. high dose proton pump inhibitor plus sucralfate Status at Discharge Cognitive/behavioral status at discharge: at baseline, oriented Functional status at discharge: independent ambulation Overall status at discharge: patient is progressing back to baseline Time Spent with Patient Time spent: Greater than 30 minutes Exam Vital Signs (past 8 hours): - 02/04/25 00:00 02/04/25 04:00 Pulse Rate 107 H 120 H Respiratory Rate 18 22 Blood Pressure 143/80 H 147/81 H Pulse Oximetry 96 98 Oxygen Flow Rate 0 Oxygen Delivery Method Room Air,CPAP Oxygen Flow Rate 0 Objective Labs 02/04/25 04:28 02/04/25 04:28 Labs: Laboratory Results - last 24 hr 02/02/25 02/03/25 02/04/25 10:24 14:55 00:50 Hgb 9.7 L Hct 28.2 L Sodium Potassium Chloride Carbon Dioxide BUN Creatinine Estimated GFR BUN/Creatinine Ratio Glucose Calcium Urine Color Yellow Urine Appearance Clear Urine pH 6.0 Ur Specific [place] 1.020 Urine Protein Negative Urine Glucose (UA) Negative Urine Ketones Negative Urine Occult Blood Trace-intact Urine Nitrate Negative Urine Bilirubin Negative Urine Urobilinogen 0.2 Ur Leukocyte Esterase Negative Urine RBC None seen Urine WBC None seen Ur Squamous Epith Cells None seen Urine Bacteria None seen Ur Culture Indicated? Cult not indicated Vol Urine Centrifuged 10ml (spun) Blood Type O Positive Antibody Screen Negative Crossmatch See Detail 02/04/25 04:28 Hgb 9.8 L Hct 28.2 L Sodium 144 Potassium 2.9 L Chloride 111 H Carbon Dioxide 30 BUN 23 H Creatinine 0.57 L Estimated GFR > 60 BUN/Creatinine Ratio 40.4 H Glucose 123 H Calcium 8.2 L Urine Color Urine Appearance Urine pH Ur Specific [place] Urine Protein Urine Glucose (UA) Urine Ketones Urine Occult Blood Urine Nitrate Urine Bilirubin Urine Urobilinogen Ur Leukocyte Esterase Urine RBC Urine WBC Ur Squamous Epith Cells Urine Bacteria Ur Culture Indicated? Vol Urine Centrifuged Blood Type Antibody Screen Crossmatch [facility] Medical History Lower urinary tract symptoms Benign prostatic hyperplasia Persistent microscopic hematuria Secondhand smoke exposure Gross hematuria Osteoarthritis of right knee BCC (basal cell carcinoma), scalp/neck (01/01/14) Basal cell carcinoma (BCC) of left shoulder (10/12/09) Elevated prostate specific antigen (PSA) (02/02/15) Chronic atrial fibrillation (03/28/13) Anticoagulated on warfarin (08/28/12) Essential hypertension Obstructive sleep apnea syndrome Mixed hyperlipidemia Surgical History History of basal cell carcinoma (BCC) excision (10/12/09) Status post Mohs micrographic surgery for basal cell carcinoma (BCC) (01/01/14) History of colonoscopy (05/19/16) S/P UPPP (uvulopalatopharyngoplasty) (1995) History of inguinal hernia repair (1967) Status post appendectomy (1958) Social History household members: spouse Smoking Status: Former smoker alcohol intake: never Discharge Assessment & Plan Assessment and Plan Plan of Treatment: Remain off warfarin for now reassess at outpatient appointment with PCP Continue omeprazole 40 mg p.o. b.i.d. plus sucralfate 1 g q.a.c. plus q.h.s. Follow-up with PCP in 1 week, plan for repeat EGD in 6-8 weeks Discharge Plan Discharge Plan Patient Disposition: Home Discharge orders & Medications Prescriptions: New sucralfate 1 gram tablet 1 g PO QACHS Qty: 120 1RF omeprazole 40 mg capsule,delayed release(DR/EC) 40 mg PO BID Qty: 60 3RF Continued (DME) lancets [BD Microtainer Lancet] 21 gauge misc See Rx Instructions .Route Qty: 200 3RF Rx Instructions: Use for INR testing as directed. (DME) Coaguchek XS Strip See Rx Instructions .Route Qty: 48 11RF Rx Instructions: Use as directed by AMS to keep INR in target range. Ocusight 1 tab PO BID hydrochlorothiazide 25 mg tablet 25 mg PO QDAY Qty: 90 3RF tamsulosin 0.4 mg capsule 0.8 mg PO BEDTIME Qty: 180 3RF diltiazem HCl [Cardizem CD] 120 mg capsule,extended release 24hr 120 mg PO DAILY Qty: 90 3RF (DME) Respironics Dreamstation-2 CPAP Qty: 1 Dose Instruction: As directed Patient Comments: Pressure: 4-6 cmH2O DME: [facility] Rx Instructions: As directed Discontinued warfarin 5 mg tablet See Rx Instructions .ROUTE .COMPLEX Qty: 138 3RF Protocol: Dose Management Condition: Sunday Dose/Route: 7.5 mg Instruction: 1.5 x 5 mg tablets Condition: Sunday Dose/Route: 7.5 mg Instruction: 1.5 x 5 mg tablets Condition: Sunday Dose/Route: 7.5 mg Instruction: 1.5 x 5 mg tablets Condition: Sunday Dose/Route: 7.5 mg Instruction: 1.5 x 5 mg tablets Condition: Dose/Route: 7.5 mg Instruction: 1.5 x 5 mg tablets Condition: Sunday Dose/Route: 7.5 mg Instruction: 1.5 x 5 mg tablets Condition: Sunday Dose/Route: 10 mg Instruction: 2 x 5 mg tablets Protocol Text: Adjustment Start Date: Sunday01/07/25 INR Value: 2.8 INR Date: 01/07/25 Recheck Date: 02/04/25 Dose Instruction: Take 2 tablets (10 mg) by mouth on Sunday, Sunday and 1.5 tablets (7.5 mg) all other days, or as directed. Rx Instructions: Take 2 tablets (10 mg) by mouth on Sunday, Sunday and 1.5 tablets (7.5 mg) all other days, or as directed. Follow up/Referrals: Miguel Liao MD [Primary Care Provider, Internal Medicine] - 1 Week Discharge Health Status Multidrug resistant organism: No MDRO Diet/Activity/Treatments Diet: Diet as Tolerated Visit Report/Discharge Packet Instructions: DI for Gastric Ulcer Stand Alone Forms: Patient Portal/API, Stroke Signs & Symptoms Discharge Data Primary Care Provider: Miguel Liao Attending Provider: Miguel Liao Admit Date/Time: 02/02/25 10:40 Quality VTE Deep Vein Thrombosis/Pulmonary Embolism Present on Admission: No [facility] PROFEE Charge Codes Discharge inpatient/observation: [id number]
--- NOTE | 2025-02-04 08:01 | PC.NURSE ---
Addendum entered by Fabian Cheema RN 02/04/25 11:12: DISCHARGE PAPERWORK DISCUSSED AND SIG PAGE SIGNED AND PLACED IN CHART. IV'S D/C'D. WHEELED OUT AT 1105. Original Note: 0800 DR SMITH AT BEDSIDE DISCUSSING POC WITH PATIENT. PLAN TO DISCHARGE TODAY. MADE AWARE OF POTASSIUM RESULT. STATES HE WILL PLACE ORDERS.
[2025-02-04] MEDS: PANTOPRAZOLE 40 MG VIAL IV (08:21)
[2025-02-04] MEDS: SODIUM CHLORIDE 0.9% FLUSH 10 ML IV (08:22)
[2025-02-04] MEDS: VIT C/E/ZN/COPPR/LUTEIN/ZEAXAN CAPSULE 1 CAP PO (08:22)
[2025-02-04] MEDS: POTASSIUM CHLORIDE 20 MEQ TAB 40 MEQ PO ×2 (08:22→10:53)
--- NOTE | 2025-02-04 10:45 | CM.DPNOTE ---
DCP note LEGAL PROCESS SPECIALIST reviewed EMR per provider note, cleared for dc home. per RN, no new obvious needs identified at this time. LEGAL PROCESS SPECIALIST continues to abide by the pt wish to only speak with RNs and doctors and did not meet with pt at this time P: dc home with spouse support and OP f/u as needed. no identified barriers to safe dc home. will continue to follow as needed AHMET Campos
== END 2025-02-04 11:05 | disposition home or self-care (01) ==
LOC: ED 10:08 → AC 11:09 → ICU 02-03 14:00 → AC 02-03 14:44 → ICU 02-03 14:44
PROVIDERS: Nurse Anesthetist, Certified Registered; Student in an Organized Health Care Education/Training Program; Surgery; Admitting Provider Internal Medicine; Emergency Provider Emergency Medicine; PCP Internal Medicine; Referring Provider Emergency Medicine; Visit Provider Internal Medicine
PROC: 0DJ08ZZ Inspection of Upper Intestinal Tract, Via Natural or Artificial Opening Endoscopic (ICD-10-PCS; CPT 43239; principal; 2025-02-02 17:45)
DX: K25.0 Acute gastric ulcer with hemorrhage (principal); I48.20 Chronic atrial fibrillation, unspecified; Z79.01 Long term (current) use of anticoagulants; R55 Syncope and collapse; Z87.891 Personal history of nicotine dependence; I10 Essential (primary) hypertension; R00.0 Tachycardia, unspecified; N40.1 Benign prostatic hyperplasia with lower urinary tract symptoms; D68.32 Hemorrhagic disorder due to extrinsic circulating anticoagulants; T45.515A Adverse effect of anticoagulants, initial encounter; D64.9 Anemia, unspecified; I25.10 Atherosclerotic heart disease of native coronary artery without angina pectoris; G47.33 Obstructive sleep apnea (adult) (pediatric); A04.8 Other specified bacterial intestinal infections
CPT/HCPCS: 43239; 36415; 36430; 71045; 71260; 74177; 80048; 80053; 81001; 81003; 81015; 82272; 82962; 83605; 84145; 84484; 85014; 85018; 85025; 85610; 85730; 86850; 86900; 86901; 87040; 87633; 93005; 93010; 96365; 96367; 96375; 96376; 99223; 99231; 99233; 99239; 99285; G0378; P9016; J0131; J0696; J2470; J2704; J7030; J7050; J7120; J7168; Q9967

== ENCOUNTER → 2025-02-06 14:37 | Outpatient (CLI) | payer OTHER, SELFPAY ==
[2025-02-02 12:02] VITALS: BMI 34.7
[2025-02-06 15:30] LABS: Appearance Urine UA CLEAR; Bilirubin Urine UA NEGATIVE (NEGATIVE); Color Urine UA YELLOW; Glucose Urine UA NEGATIVE (Negative); Ketones Urine UA NEGATIVE (NEGATIVE); Leukocyte Esterase Urine UA NEGATIVE (NEGATIVE); Nitrite Urine UA NEGATIVE (Negative); Occult Blood Urine UA NEGATIVE (Negative); Protein Urine UA NEGATIVE (Negative); Specific Gravity Urine UA 1.015 (1.000-1.035); Urobilinogen Urine UA 0.2 E.U./dL (0.2); pH Urine UA 6.0 (4.5-8.0)
[2025-02-06 15:38] LABS: Culture Indicated Urine Cult Not Indicated
== END ==
PROVIDERS: PCP Internal Medicine; Referring Provider Internal Medicine; Visit Provider Internal Medicine
DX: R35.0 Frequency of micturition (principal)
CPT/HCPCS: 81001

== ENCOUNTER → 2025-02-28 10:13 | Outpatient (CLI) | payer OTHER, SELFPAY ==
[2025-02-02 12:02] VITALS: BMI 34.7
[2025-02-28 14:50] LABS: Influenza A - CEPHEID Flu A POSITIVE (NEGATIVE); Influenza B - CEPHEID Flu B NEGATIVE (NEGATIVE)
[2025-02-28 15:10] LABS: COVID-19 CEPHEID 4-PLEX PCR Negative (Negative)
== END ==
PROVIDERS: PCP Internal Medicine; Visit Provider Registered Nurse
DX: R05.1 Acute cough (principal)
CPT/HCPCS: 87637

== ENCOUNTER → 2025-03-04 10:00 | Outpatient (CLI) | payer OTHER, SELFPAY ==
[2025-02-02 12:02] VITALS: BMI 34.7
[2025-03-04 10:44] LABS: Add Manual Diff / Slide Review NO; Hematocrit 39.4 % (41-53); Hemoglobin 13.0 g/dL (13.5-17.5); Lymphocytes Absolute Auto 1200 /uL (1100-4500); Mean Corpuscular HGB Conc 33.0 % (30-36); Mean Corpuscular Hemoglobin 27.8 PG (26-34); Mean Corpuscular Volume 84.3 fL (80-100); Platelet Count 263 X10^3/uL (150-400)
[2025-03-04 11:22] LABS: Blood Urea Nitrogen 17 mg/dL (9-20); Calcium 9.6 mg/dL (8.4-10.2); Carbon Dioxide 32 mmol/L (22-32); Chloride 103 mmol/L (98-107); Estimated Glomerular Filt Rate > 60 mL/min (>60); Glucose 107 mg/dL (70-99); HEMOLYSIS < 15 (0-50); Potassium 4.2 mmol/L (3.4-5.1); Sodium 141 mmol/L (137-145)
== END ==
PROVIDERS: PCP Internal Medicine; Referring Provider Internal Medicine; Visit Provider Internal Medicine
DX: K25.0 Acute gastric ulcer with hemorrhage (principal); K92.2 Gastrointestinal hemorrhage, unspecified
CPT/HCPCS: 36415; 80048; 85025